=== PATIENT | male | born 1980 | race Caucasian/White ===

== ENCOUNTER 2022-07-09 13:05 | Inpatient (IN) ==
[2022-07-09] MEDS ORDERED: MULTI-VITAMIN INFUSION 10 ML, THIAMINE HCL 100 MG, FOLIC ACID 1 MG in SODIUM CHLORIDE 0... IV ONE (13:31)
[2022-07-09] MEDS ORDERED: chlordiazePOXIDE HCl 25 MG CAP PO ONE (13:31)
[2022-07-09] MEDS ORDERED: PROMETHAZINE 12.5 MG/50.5 ML BAG IV STA (13:31)
[2022-07-09] MEDS ORDERED: SODIUM CHLORIDE 0.9% 1000ML 500 ML IV ONE (13:31)
--- NOTE | 2022-07-09 13:45 | Emergency Department Note ---
Impression & Plan Alcohol withdrawal, Benzodiazepine withdrawal, Hypertension, Tachycardia, Tremor, Diffuse abdominal pain ED Provider Note NAME: HOA WOMACK AGE: 41 SEX: M : 1980 ARRIVES VIA: Walk-In INFORMANT: [Patient][nursing] ED PROVIDER(S): [Duane Chauhan MD] CHIEF COMPLAINT: Detox HISTORY OF PRESENT ILLNESS: The patient is a 41-year-old male who states that he has been at [facility] rehab for around 5 days. The patient is there for alcohol and benzodiazepine withdrawal. The patient states that he had been taking a lot of benzodiazepine before he was admitted to [facility] but now is not using any. Yesterday, he began to shake and feel agitated, he began having muscle cramps and body aches. He began hallucinating. He cannot stop shivering. He has had some sweats. The patient was also complaining of some moderate diffuse abdominal pain. He has a history of ileus. In addition, the patient states that his TB test returned positive. The patient denies fever, no diarrhea. He thinks most of his symptoms today are from benzodiazepine withdrawal, he is asking for help. PMHx/PSHx: See Below SOCIAL HISTORY: See Below. PHYSICAL EXAM: GENERAL: Patient is in moderate distress, shivering. HEENT: No acute trauma, normocephalic atraumatic, mucous membranes moist, no nasal congestion. NECK: No stridor, no adenopathy, no meningismus, trachea is midline. LUNGS: Clear to auscultation bilaterally, no wheeze, no rhonchi, breath sounds equal. HEART: Tachycardic, regular rhythm, no murmurs. ABDOMEN: Soft, nontender, bowel sounds positive, no peritonitis. No abdominal distention. EXTREMITIES: No cyanosis or edema, full range of motion of all the joints without pain or difficulty, no signs for acute trauma. NEUROLOGIC: Oriented x 3, no acute motor or sensory deficits, no focal weakness. Constant shaking of all extremities noted. SKIN: No rash, no jaundice, no diaphoresis. Psychiatric: Cooperative, voluntary, admits to withdrawal symptoms. DIFFERENTIAL DIAGNOSIS: Alcohol and/or benzodiazepine withdrawal, dehydration, electrolyte imbalance, infection, ileus, bowel obstruction, TB, UTI, viral illness, among others. EMERGENCY DEPARTMENT COURSE/PROCEDURES: Prior/Outside records reviewed: None ECG: Indication was tachycardia. The ECG shows a sinus tachycardia with a rate of 101. There is baseline artifact seen. No obvious ST elevation, no PVCs. The QTc is 433. There is some very subtle poor R wave progression. Continuous Cardiac Monitoring: An order was placed for continuous cardiac monitoring. The monitor shows a rate of 108 with sinus tachycardia. Critical Care Note: I have personally spent 46 minutes of critical care time in the direct management of this patient. This includes bedside care, interpretation of diagnostic studies, and testing, discussion with consultants, patient, and family members, and other required patient management activities. This 46 minutes is in excess of all separately billable procedures. MEDICAL DECISION MAKING: There is no leukocytosis or concerning anemia. There is a normal platelet count. No renal failure or significant electrolyte abnormality. No concerning liver enzyme elevation. No evidence for pancreatitis. The patient appears to be in euthyroid state. ECG showed a sinus tachycardia with artifact, no obvious ST elevation. Cardiac enzyme testing x1 was not consistent with acute cardiac injury. Urinalysis did not show infection. COVID, influenza and RSV test were negative. Chest x-ray did not show pneumonia or CHF, no findings of TB. Abdominal and pelvis CT did not show bowel obstruction or ileus. No acute surgical process by CT imaging. On exam, the patient was hypertensive, tachycardic and shivering. He appeared to be suffering from withdrawal. The patient was aggressively managed. He was given IV saline, 500 cc. He was ordered for a liter of IV saline with multivitamins, thiamine and folate. He received 10 mg of IV Valium and then 2 mg of IV Ativan as needed for anxiety and withdrawal. He was given 25 mg of oral Librium. He received 12.5 mg of IV Phenergan. He received IV Tylenol for complaints of a headache. The patient's blood pressure, heart rate and shaking are all markedly improved since treatment here in the ED. He seems to be doing much better. The patient is in need of a hospital stay. He is in no condition to be discharged back to [facility] rehab. He will require detox here in the hospital. I spoke with the patient and case management, the on-call hospitalist was consulted. DISPOSITION: Patient presentation warrants hospital admission. Past Med/Surg History Medical History Alcohol abuse Benzodiazepine abuse PPD positive Social History Feels Safe at Home: Yes Allergies Allergies Allergy/AdvReac Type Severity Reaction Status Date / Time Penicillins Allergy Unknown Unknown Verified 07/09/22 16:42 Home Meds Home Medications Medication Instructions Recorded Confirmed Naloxone Nasal [place] 4mg 1 spray NA DIRECTED PRN Odor 07/09/22 07/09/22 Zinc Oxide/ Dimethicone 1 applic topical DIRECTED PRN 07/09/22 07/09/22 Hemorrhoids acetaminophen 325 mg capsule 650 mg PO QID PRN Pain 07/09/22 07/09/22 (Tylenol) buspirone 10 mg tablet 10 mg PO TID 07/09/22 07/09/22 cholecalciferol (vitamin D3) 125 125 mcg PO DAILY 07/09/22 07/09/22 mcg (5,000 unit) tablet (Vitamin D3) clonidine HCl 0.1 mg tablet 0.1 mg PO TID PRN .LOS 07/09/22 07/09/22 ANXIETY/RESTLESSNESS cyanocobalamin (vitamin B-12) 1,000 mcg PO DAILY 07/09/22 07/09/22 1,000 mcg tablet (Vitamin B-12) diazepam 5 mg tablet (Valium) 2.5 mg PO .[id number] 07/09/22 07/09/22 diazepam 5 mg tablet (Valium) 2.5 mg PO .[id number] 07/09/22 07/09/22 diazepam 5 mg tablet (Valium) 5 mg PO .[id number] 07/09/22 07/09/22 diazepam 5 mg tablet (Valium) 5 mg PO DIRECTED PRN .SEE 07/09/22 07/09/22 INSTRUCTIONS diphenhydramine HCl 25 mg capsule 25 - 50 mg PO Q6 PRN .. 07/09/22 07/09/22 (Benadryl) famotidine 20 mg tablet 20 mg PO HS 07/09/22 07/09/22 folic acid 1 mg tablet 1 mg PO DAILY 07/09/22 07/09/22 gabapentin 300 mg capsule 300 mg PO TID 07/09/22 07/09/22 garlic 1,000 mg capsule 1,000 mg PO DAILY 07/09/22 07/09/22 hydroxyzine pamoate 50 mg capsule 50 mg PO TID PRN .los 07/09/22 07/09/22 (Vistaril) ibuprofen 600 mg tablet 600 mg PO QID PRN Pain 07/09/22 07/09/22 lisinopril 10 mg tablet 10 mg PO DAILY 07/09/22 07/09/22 loperamide 2 mg capsule 4 mg PO BID PRN Diarrhea 07/09/22 07/09/22 loratadine 10 mg tablet (Claritin) 10 mg PO DAILY PRN ALLERGIES 07/09/22 07/09/22 melatonin 5 mg tablet 5 - 10 mg PO HS PRN Sleep 07/09/22 07/09/22 multivitamin 1 tab PO DAILY 07/09/22 07/09/22 niacin 500 mg tablet,extended 500 mg PO QAM 07/09/22 07/09/22 release omega-3 fatty acids 1,000 mg 1,000 mg PO DAILY 07/09/22 07/09/22 capsule omeprazole 40 mg capsule,delayed 40 mg PO DAILY 07/09/22 07/09/22 release paroxetine HCl 40 mg tablet (Paxil) 40 mg PO DAILY 07/09/22 07/09/22 saw palmetto 450 mg capsule 450 mg PO HS 07/09/22 07/09/22 thiamine HCl (vitamin B1) 100 mg 100 mg PO DAILY 07/09/22 07/09/22 tablet trazodone 50 mg tablet 75 mg PO HS 07/09/22 07/09/22 umeclidinium 62.5 mcg-vilanterol 1 inh inhalation DAILY 07/09/22 07/09/22 25 mcg/actuation powdr for inhalation (Anoro Ellipta) Results & Data (ED) Vital Signs Vital Signs - 24 hr 07/09/22 13:11 07/09/22 14:05 07/09/22 14:56 Temperature 36.4 C L Temperature Source Temporal Artery Scan Pulse Rate 125 H 114 H Pulse Rate [Apical] 129 H Pulse Rate from SpO2 Sensor 96 H Pulse Rhythm [Apical] Regular Respiratory Rate 24 19 26 H Blood Pressure 172/127 H Blood Pressure [Left Arm] 148/49 H Blood Pressure Mean 142 Blood Pressure Mean [Left Arm] 82 Blood Pressure Position Sitting Pulse Oximetry 95 97 93 Oxygen Delivery Method Room Air Room Air Sepsis Recent Fever Within 48 Hours No Sepsis New/Unexplained Change in Mental Status No Sepsis Action Taken by Nursing No Action Required 07/09/22 15:16 07/09/22 15:30 07/09/22 15:30 Temperature Temperature Source Pulse Rate 212 H 111 H Pulse Rate [Apical] Pulse Rate from SpO2 Sensor 224 H Pulse Rhythm [Apical] Respiratory Rate 23 21 Blood Pressure 170/116 H Blood Pressure [Left Arm] Blood Pressure Mean 134 Blood Pressure Mean [Left Arm] Blood Pressure Position Pulse Oximetry 96 Oxygen Delivery Method Sepsis Recent Fever Within 48 Hours Sepsis New/Unexplained Change in Mental Status Sepsis Action Taken by Nursing 07/09/22 15:47 07/09/22 15:47 07/09/22 16:00 Temperature Temperature Source Pulse Rate 104 H Pulse Rate [Apical] Pulse Rate from SpO2 Sensor 75 Pulse Rhythm [Apical] Respiratory Rate 30 H Blood Pressure 119/90 150/112 H Blood Pressure [Left Arm] Blood Pressure Mean 99 124 Blood Pressure Mean [Left Arm] Blood Pressure Position Pulse Oximetry 100 Oxygen Delivery Method Sepsis Recent Fever Within 48 Hours Sepsis New/Unexplained Change in Mental Status Sepsis Action Taken by Nursing 07/09/22 16:00 07/09/22 16:16 07/09/22 16:16 Temperature Temperature Source Pulse Rate 70 78 Pulse Rate [Apical] Pulse Rate from SpO2 Sensor 72 78 Pulse Rhythm [Apical] Respiratory Rate 20 15 Blood Pressure Blood Pressure [Left Arm] Blood Pressure Mean 85 Blood Pressure Mean [Left Arm] Blood Pressure Position Pulse Oximetry 96 98 Oxygen Delivery Method Sepsis Recent Fever Within 48 Hours Sepsis New/Unexplained Change in Mental Status Sepsis Action Taken by Nursing 07/09/22 16:30 07/09/22 16:30 Temperature Temperature Source Pulse Rate 78 Pulse Rate [Apical] Pulse Rate from SpO2 Sensor 75 Pulse Rhythm [Apical] Respiratory Rate 16 Blood Pressure 142/104 H Blood Pressure [Left Arm] Blood Pressure Mean 116 Blood Pressure Mean [Left Arm] Blood Pressure Position Pulse Oximetry 99 Oxygen Delivery Method Sepsis Recent Fever Within 48 Hours Sepsis New/Unexplained Change in Mental Status Sepsis Action Taken by Shelter Medications Current Medication List: was personally reviewed by me Laboratory Data Attestation: I reviewed the patient's lab results. 07/09/22 14:00 07/09/22 14:00 Lab Results 07/09/22 07/09/22 07/09/22 Range/Units 14:00 14:00 14:00 WBC 6.84 (4.8-10.8) K/ul RBC 4.79 (4.63-6.08) M/uL Hgb 15.3 (14.0-18.0) g/dl Hct 45.1 (40.1-51.0) % MCV 94.2 (80.0-100.0) fL MCH 31.9 (25.0-34.0) pg MCHC 33.9 (32.0-36.0) g/dL RDW Std Deviation 46.9 H (36.4-46.3) fL RDW Coeff of Cammie 13.6 (11.5-14.5) % Plt Count 267 (130-400) K/uL MPV 9.3 L (9.4-12.4) fL Immature Gran % (Auto) 0.4 % Neut % (Auto) 73.0 % Lymph % (Auto) 15.2 % [place] % (Auto) 10.2 % Eos % (Auto) 0.6 % Baso % (Auto) 0.6 % Neut # (Auto) 4.99 (1.4-6.5) K/uL Lymph # (Auto) 1.04 L (1.2-3.4) K/uL [place] # (Auto) 0.70 (0.24-0.82) K/uL Eos # (Auto) 0.04 (0-0.50) K/uL Baso # (Auto) 0.04 (0-0.2) K/uL Immature Gran # (Auto) 0.03 H (0.00-0.02) K/uL Sodium 138 (136-145) mmol/L Potassium 4.0 (3.5-5.1) mmol/L Chloride 103 (98-107) mmol/L Carbon Dioxide 26 (21-32) mmol/L Anion Gap 9 (3-11) BUN 11 (6-23) mg/dl Creatinine 1.04 (0.6-1.4) mg/dl Est Cr Clr Drug Dosing 115.6 ml/min Est GFR ( Amer) 102.9 ml/min Est GFR (Non-Af Amer) 88.8 ml/min BUN/Creatinine Ratio 10.6 (10-20) Glucose 91 (70-99(Fasting)) mg/dl Calcium 10.1 (8.5-10.1) mg/dl Magnesium 2.1 (1.7-2.4) mg/dl Total Bilirubin 0.5 (0.2-1.0) mg/dl AST 43 H (13-39) U/L ALT 34 (7-52) U/L Alkaline Phosphatase 79 (34-104) U/L Troponin I High Sens 3.2 (0-20) pg/ml Total Protein 8.0 (6.0-8.3) gm/dl Albumin 4.6 (3.4-5.0) gm/dl Globulin 3.4 (2.5-4.0) gm/dl Albumin/Globulin Ratio 1.4 (0.9-2) Lipase 35 (11-82) U/L TSH 0.725 (0.300-4.500) uIu/ml Administered Medications Lorazepam (Lorazepam 2 Mg/1 Ml Vial) 1 mg IV UD PRN; Protocol PRN Reason: EtOH Withdrawal AWSS Score 6,7 Stop: 08/08/22 16:30 Last Admin: 07/09/22 18:08 Dose: 1 mg Documented By: RUFUS Discontinued Medications Chlordiazepoxide HCl (Chlordiazepoxide Hcl 25 Mg Cap) 25 mg PO NOW ONE Stop: 07/09/22 13:32 Last Admin: 07/09/22 13:51 Dose: 25 mg Documented By: TRUNG Diazepam (Diazepam 5 Mg/Ml Inj 10ml Vial) 10 mg IV NOW STA Stop: 07/09/22 13:41 Last Admin: 07/09/22 13:51 Dose: 10 mg Documented By: TRUNG Gabapentin (Gabapentin 600 Mg Tab) 1,200 mg PO NOW STA Stop: 07/09/22 16:37 Last Admin: 07/09/22 17:12 Dose: 1,200 mg Documented By: RUFUS Sodium Chloride (Nss 1000ml) 500 mls @ 999 mls/hr IV .Q31M ONE Stop: 07/09/22 14:01 Last Infusion: 07/09/22 14:37 Dose: 0 mls/hr Documented By: Admin: 07/09/22 13:57 Dose: 999 mls/hr Documented By: TRUNG Multivitamins 10 ml/ Thiamine HCl 100 mg/ Folic Acid 1 mg/Sodium Chloride 1,011.2 mls @ 1,011.2 mls/hr IV .Q1H ONE Stop: 07/09/22 14:30 Last Admin: 07/09/22 14:30 Dose: 1,011.2 mls/hr Documented By: BORIS Promethazine HCl (Phenergan) 12.5 mg in 50.5 mls @ 202 mls/hr IV NOW STA Stop: 07/09/22 13:45 Last Infusion: 07/09/22 14:36 Dose: 0 mls/hr Documented By: Admin: 07/09/22 13:50 Dose: 202 mls/hr Documented By: TRUNG Acetaminophen (Ofirmev) 1,000 mg in 100 mls @ 400 mls/hr IV NOW STA Stop: 07/09/22 16:28 Last Admin: 07/09/22 16:33 Dose: 400 mls/hr Documented By: RUFUS Ioversol (Optiray 350 100ml) 85 ml IV ONCE ONE Stop: 07/09/22 15:07 Last Admin: 07/09/22 15:12 Dose: 85 ml Documented By: MALENA Lorazepam (Lorazepam 2 Mg/1 Ml Vial) 2 mg IV NOW STA Stop: 07/09/22 15:00 Last Admin: 07/09/22 15:25 Dose: 2 mg Documented By: BORIS Imaging Data Radiologist's Impression: Abdomen/Pelvis CT 07/09/22 13:31 CT abd pelvis IV con only CLINICAL HISTORY: pain, poss obstruction TECHNIQUE: Helical axial images of the abdomen and pelvis were obtained and displayed. Automated dose lowering techniques and/or adjustment according to patient size were utilized for this exam. This exam was performed with intravenous contrast. CT DOSE: 1463.66 mGy.cm COMPARISON: None available at the time of this dictation. FINDINGS: Lower chest: Bibasilar atelectasis versus scarring is seen. Liver: Unremarkable. No focal lesions are seen. Gallbladder and biliary tree: No calcified gallstones. Normal caliber wall. No intra- or extrahepatic biliary ductal dilation. Pancreas: Unremarkable, no focal lesions. Spleen: Unremarkable. Adrenals: Unremarkable. Kidneys and ureters: Unremarkable. Bladder: Unremarkable. Reproductive organs: Unremarkable. Bowel: Unremarkable appearance of the bowel. The appendix is normal. Lymph nodes Retroperitoneal: Unremarkable. Pelvic: Unremarkable. Mesenteric: Unremarkable. Peritoneum: Normal. Vessels: Unremarkable. Abdominal wall: Unremarkable. Bones: Unremarkable. IMPRESSION: No evidence of bowel obstruction or other acute abnormality. ACT 112: Negative or not required by law. Electronically signed by: Don Wade M.D. 07/09/2022 3:29 PM Chest X-Ray 07/09/22 13:31 XR chest 1V portable CLINICAL HISTORY: pos tb test TECHNIQUE: Single frontal radiograph of the chest was obtained. Comparison: None available at the time of this dictation. FINDINGS: No lines and tubes are seen. The cardiomediastinal silhouette is normal. The lungs are clear. Incidental note is made of an azygos fissure. No evidence of pleural effusion or pneumothorax. IMPRESSION: No acute abnormality and in particular no evidence of tuberculosis. ACT 112: Negative or not required by law. Electronically signed by: Don Wade M.D. 07/09/2022 2:28 PM Discharge Plan Visit Data Chief Complaint: Detox Request Stated Complaint: DETOX REQUEST ED Provider: Duane Chauhan Discharge Problem: Alcohol withdrawal, Benzodiazepine withdrawal, Hypertension, Tachycardia, Tremor, Diffuse abdominal pain Patient Disposition: Admitted As Inpatient Condition: Fair Discharge Instructions Interventions: ED Discharge Assessment Last Done: 07/09/22 18:09
[2022-07-09 14:25] LABS: Basophils # (auto) 0.04 K/uL (0-0.2); Basophils % (auto) 0.6 %; Eosinophils # (auto) 0.04 K/uL (0-0.50); Eosinophils % (auto) 0.6 %; Hematocrit (blood only) 45.1 % (40.1-51.0); Hemoglobin 15.3 g/dl (14.0-18.0); Immature Granulocytes # (auto) 0.03 K/uL (0.00-0.02); Immature Granulocytes % (auto) 0.4 %; Lymphocytes # (auto) 1.04 K/uL (1.2-3.4); Lymphocytes % (auto) 15.2 %; Mean Corpuscular Hemoglobin 31.9 pg (25.0-34.0); Mean Corpuscular Hgb Conc 33.9 g/dL (32.0-36.0); Mean Corpuscular Volume 94.2 fL (80.0-100.0); Mean Platelet Volume 9.3 fL (9.4-12.4); Monocytes % (auto) 10.2 %; Neutrophils # (auto) 4.99 K/uL (1.4-6.5); Platelet Count 267 K/uL (130-400); RDW Coefficient of Variation 13.6 % (11.5-14.5); RDW Standard Deviation 46.9 fL (36.4-46.3); Red Blood Count 4.79 M/uL (4.63-6.08); White Blood Count 6.84 K/ul (4.8-10.8)
--- NOTE | 2022-07-09 14:29 | XRay Report ---
XR chest 1V portable CLINICAL HISTORY: pos tb test TECHNIQUE: Single frontal radiograph of the chest was obtained. Comparison: None available at the time of this dictation. FINDINGS: No lines and tubes are seen. The cardiomediastinal silhouette is normal. The lungs are clear. Inciden anjel note is made of an azygos fissure. No evidence of pleural effusion or pneumothorax. IMPRESSION: No acute abnormality and in particular no evidence of tuberculosis. ACT 112: Negative or not required by law. Electronically signed by: Don Wade M.D. 07/09/2022 2:28 PM
--- NOTE | 2022-07-09 14:39 | Electrocardiogram Report ---
Test Reason : Blood Pressure : / mmHG Vent. Rate : 101 BPM Atrial Rate : 101 BPM P-R Int : 150 ms QRS Dur : 078 ms QT Int : 334 ms P-R-T Axes : 039 -03 022 degrees QTc Int : 433 ms Poor data quality, interpretation may be adversely affected Sinus tachycardia Poor R wave progression, consider anterior MD vs. lead placement vs. LVH Abnormal ECG No previous ECGs available Confirmed by Villa Albert ([id number]) on 07/09/2022 2:39:20 PM Referred By: Confirmed By:Villa Albert
[2022-07-09 14:53] LABS: Troponin I High Sensitivity 3.2 pg/ml (0-20)
[2022-07-09 14:55] LABS: Albumin Globulin Ratio 1.4 (0.9-2); Albumin Level 4.6 gm/dl (3.4-5.0); BUN Creatinine Ratio 10.6 (10-20); Bilirubin,Total 0.5 mg/dl (0.2-1.0); Calcium 10.1 mg/dl (8.5-10.1); Creatinine Clr Calc Pharmacy 115.6 ml/min; Est GFR (African American) 102.9 ml/min; Est GFR (Non-African American) 88.8 ml/min; Globulin 3.4 gm/dl (2.5-4.0); Magnesium 2.1 mg/dl (1.7-2.4)
[2022-07-09] MEDS ORDERED: LORazepam 2 MG/1 ML VIAL IV STA ×4 (14:59→22:52)
[2022-07-09 15:06] LABS: Influenza A virus by PCR Negative (Neg); Influenza B virus by PCR Negative (Neg); RSV by PCR Negative (Neg); SARS CoV2 RNA(COVID-19) Ceph NEGATIVE (Negative)
[2022-07-09] MEDS ORDERED: OPTIRAY 350 100ml IV ONE (15:06)
[2022-07-09] MEDS ORDERED: LORazepam 2 MG/1 ML VIAL IV PRN ×3 (15:10→16:31)
--- NOTE | 2022-07-09 15:30 | CT Scan Report ---
CT abd pelvis IV con only CLINICAL HISTORY: pain, poss obstruction TECHNIQUE: Helical axial images of the abdomen and pelvis were obtained and displayed. Automated dose lowering techniques and/or adjustment according to patient size were utilized for this exam. This e xam was performed with intravenous contrast. CT DOSE: 1463.66 mGy.cm COMPARISON: None available at the time of this dictation. FINDINGS: Lower chest: Bibasilar atelectasis versus scarring is seen. Liver: Unremarkable. No focal lesions are seen. Gallbladder and biliary tree: No calcified gallstones. Normal caliber wall. No intra- or extrahepatic biliary ductal dilation. Pancreas: Unremarkable, no focal lesions. Spleen: Unremarkable. Adrenals: Unremarkable. Kidneys and ureters: Unremarkable. Bladder: Unremarkable. Reproductive organs: Unremarkable. Bowel: Unremarkable appearance of the bowel. The appendix is normal. Lymph nodes Retroperitoneal: Unremarkable. Pelvic: Unremarkable. Mesenteric: Unremarkable. Peritoneum: Normal. Vessels: Unremarkable. Abdominal wall: Unremarkable. Bones: Unremarkable. IMPRESSION: No evidence of bowel obstruction or other acute abnormality. ACT 112: Negative or not required by law. Electronically signed by: Don Wade M.D. 07/09/2022 3:29 PM
[2022-07-09] MEDS ORDERED: ACETAMINOPHEN 1,000 MG/100 ML VIAL IV STA (16:14)
[2022-07-09] MEDS ORDERED: GABAPENTIN 1200MG ALCOHOL WITHDRAWAL LOAD PO STA (16:31)
[2022-07-09] MEDS ORDERED: Ativan IV Alcohol Withdrawal--Active Protocol IV PRN (16:31)
[2022-07-09] MEDS ORDERED: GABAPENTIN 600 MG TAB PO STA (16:36)
--- NOTE | 2022-07-09 16:37 | History & Physical Report ---
Date of Service July 09, 2022 Assessment & Plan (1) Alcohol withdrawal: Plan: Patient going through alcohol withdrawal. 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 (2) Benzodiazepine withdrawal with perceptual disturbance: Plan: as above. (3) PPD positive: Plan: questionable PPD positive, this was completed on Friday, over 72 hours, however, no induration noted, only eyrthema at this time (4) Scrotal pain: Plan: consult urology. History of Present Illness Chief Complaint: alcohol withdrawal Primary Care Provider: NO PCP This is a pleasant 41 yo malewho was at [facility] for about 5 days. He was being treated for alcohol and benzo withdrawal. The patient reports he normally takes about 6 mg of ativan daily. He was being treated with valium but yesterday was having hallucinations, shakes and being agitated. He has sweats. The patient also reports having a positive PPD which was done on Friday. He also reports having a history of an ileus. Is complaining of right wrist pain. The patient denies fever, and no diarrhea. He thinks most of his symptoms today are from benzodiazepine withdrawal, he is asking for help. Allergies Allergy/AdvReac Type Severity Reaction Status Date / Time Penicillins Allergy Unknown Unknown Verified 07/09/22 16:42 Home Medications Medication Instructions Recorded Confirmed Type Naloxone Nasal [place] 4mg 1 spray NA DIRECTED PRN Odor 07/09/22 07/09/22 History Zinc Oxide/ Dimethicone 1 applic topical DIRECTED PRN 07/09/22 07/09/22 History Hemorrhoids acetaminophen 325 mg capsule 650 mg PO QID PRN Pain 07/09/22 07/09/22 History (Tylenol) buspirone 10 mg tablet 10 mg PO TID 07/09/22 07/09/22 History cholecalciferol (vitamin D3) 125 125 mcg PO DAILY 07/09/22 07/09/22 History mcg (5,000 unit) tablet (Vitamin D3) clonidine HCl 0.1 mg tablet 0.1 mg PO TID PRN .LOS 07/09/22 07/09/22 History ANXIETY/RESTLESSNESS cyanocobalamin (vitamin B-12) 1,000 mcg PO DAILY 07/09/22 07/09/22 History 1,000 mcg tablet (Vitamin B-12) diazepam 5 mg tablet (Valium) 2.5 mg PO .[id number] 07/09/22 07/09/22 History diazepam 5 mg tablet (Valium) 2.5 mg PO .[id number] 07/09/22 07/09/22 History diazepam 5 mg tablet (Valium) 5 mg PO .[id number] 07/09/22 07/09/22 History diazepam 5 mg tablet (Valium) 5 mg PO DIRECTED PRN .SEE 07/09/22 07/09/22 History INSTRUCTIONS diphenhydramine HCl 25 mg capsule 25 - 50 mg PO Q6 PRN .. 07/09/22 07/09/22 History (Benadryl) famotidine 20 mg tablet 20 mg PO HS 07/09/22 07/09/22 History folic acid 1 mg tablet 1 mg PO DAILY 07/09/22 07/09/22 History gabapentin 300 mg capsule 300 mg PO TID 07/09/22 07/09/22 History garlic 1,000 mg capsule 1,000 mg PO DAILY 07/09/22 07/09/22 History hydroxyzine pamoate 50 mg capsule 50 mg PO TID PRN .los 07/09/22 07/09/22 History (Vistaril) ibuprofen 600 mg tablet 600 mg PO QID PRN Pain 07/09/22 07/09/22 History lisinopril 10 mg tablet 10 mg PO DAILY 07/09/22 07/09/22 History loperamide 2 mg capsule 4 mg PO BID PRN Diarrhea 07/09/22 07/09/22 History loratadine 10 mg tablet (Claritin) 10 mg PO DAILY PRN ALLERGIES 07/09/22 07/09/22 History melatonin 5 mg tablet 5 - 10 mg PO HS PRN Sleep 07/09/22 07/09/22 History multivitamin 1 tab PO DAILY 07/09/22 07/09/22 History niacin 500 mg tablet,extended 500 mg PO QAM 07/09/22 07/09/22 History release omega-3 fatty acids 1,000 mg 1,000 mg PO DAILY 07/09/22 07/09/22 History capsule omeprazole 40 mg capsule,delayed 40 mg PO DAILY 07/09/22 07/09/22 History release paroxetine HCl 40 mg tablet (Paxil) 40 mg PO DAILY 07/09/22 07/09/22 History saw palmetto 450 mg capsule 450 mg PO HS 07/09/22 07/09/22 History thiamine HCl (vitamin B1) 100 mg 100 mg PO DAILY 07/09/22 07/09/22 History tablet trazodone 50 mg tablet 75 mg PO HS 07/09/22 07/09/22 History umeclidinium 62.5 mcg-vilanterol 1 inh inhalation DAILY 07/09/22 07/09/22 History 25 mcg/actuation powdr for inhalation (Anoro Ellipta) Past Med/Surg History Medical History Alcohol abuse Benzodiazepine abuse PPD positive Social History Smoking Status: Never smoker Do You Dip or Chew Tobacco: No; Hx Alcohol Use: Yes Alcohol type: hard liquor Hx Substance Use: Yes Last Used Substance: Days (ago) Preferred Language: Swazi Communication Ability: Unable Rn Oncology Research Required: No Beliefs That Will Affect Care: None Current Living Situation: Alone Other Information That Helps Us Care for You: No Feels Safe at Home: Yes Safety Concerns: Feels Safe At This Time Assistive Devices: None Review of Systems Constitutional: + chills and + body aches; no fever Eyes: no blind spots Ear, Nose, Mouth, Throat: no ear pain and no tinnitus Respiratory: no cough Cardiovascular: no chest pain Gastrointestinal: + abdominal pain Genitourinary: no dysuria Musculoskeletal: no back pain Integumentary: no rash Neurologic: no gait abnormality Psychiatric: + irritability Endocrine: + fatigue Hematologic / Lymphatic: no easy bleeding Allergy / Immunological: no GI upset with certain foods Physical Exam Constitutional: WD/WN, vitals as above Eyes: PERRL, conjunctivae normal, anicteric sclerae ENMT: external ear and nose normal, oropharynx normal Neck: trachea midline, no thyromegaly Respiratory: normal respiratory effort, lungs clear to auscultation Cardiovascular: RRR, no murmur, no edema Gastrointestinal (Abdomen): normal bowel sounds, soft, nontender, no hepatosplenomegaly Musculoskeletal: no cyanosis or clubbing, extremities motor strength 5/5 Skin: no rashes, warm and dry (erythema on right wrist from PPD, no induration however, past 72h) Neurologic: PERRL, EOMI, accommodation nl, no face palsy, no dysarthria Psychiatric: A+Ox3, euthymic affect Lymphatic: no cervical or axillary lymphadenopathy Results & Data Results & Data ([facility]) Vital Signs (Past 12 Hours) Vital Signs Temp Pulse Pulse Resp BP BP Pulse Ox 07/09/22 14:05 129 H 19 148/49 H 97 07/09/22 13:11 36.4 C L 125 H 24 172/127 H 95 O2 Del Method 07/09/22 14:05 Room Air 07/09/22 13:11 Room Air PG Care Time/CCT Total # of Minutes Spent Total Time Spent with Patient: Total time spent is greater than 50% in coordination of care (as documented) at patient's floor/unit and/or counseling patient: Coding Level of Care Code 74912 INT INP/OBS CARE 3/75MIN Diagnoses Alcohol withdrawal F10.939 Benzodiazepine withdrawal with perceptual disturbance F13.932 PPD positive R76.11 Scrotal pain N50.82
[2022-07-09 17:06] LABS: Appearance Urine Clear (Clear); Bilirubin Urine Negative (Negative); Blood Urine Negative (Negative); Color Urine Yellow; Glucose Urine UA Negative (Negative); Ketones Urine Negative (Negative); Leukocyte Esterase Urine Negative (Negative); Nitrite Urine Negative (Negative); Protein Urine Negative (Negative); Specific Gravity Urine 1.015 (1.000-1.030); Urobilinogen Urine Negative (Negative); pH Urine 7.5 (4.5-7.5)
[2022-07-09] MEDS ORDERED: BUTT PASTE (ZINC OXIDE 16%) 171 APPLN/57 GM JAR TOP PRN (18:43)
--- NOTE | 2022-07-09 19:28 | XRay Report ---
XR wrist RT min 3V routine CLINICAL HISTORY: Right wrist pain. COMPARISON: None FINDINGS: Alignment of the right wrist is anatomic. No fracture is present. There are no osseous les ions. Joint spaces are preserved. There may be wrist and distal forearm soft tissue swelling. Deformi ty of the distal shaft of the right fifth metacarpal with relation is noted. IMPRESSION: 1. No osseous abnormality of the right wrist. 2. Right fifth metacarpal fracture. This is likely old. ACT 112: Negative or not required by law. Electronically signed by: Walt Gonsalves M.D. 07/09/2022 7:26 PM
--- NOTE | 2022-07-09 20:02 | Urology Consultation ---
Date of Consultation July 09, 2022 Assessment & Plan (1) Scrotal pain: The patient is being admitted to the hospital service for alcohol/benzo diazepam withdrawal. Management of this issue will be directed by the hospitalist. Concerning the patient's scrotal pain we recommend proceeding as follows: Is unclear if the primary symptomatology is perineal pain or scrotal pain As the patient has reported a previous scrotal mass we will check a testicular ultrasound As the patient does report a history of BPH we will check a PSA I would recommend checking postvoid residuals and if patient is having high postvoid residuals consideration can be given to adding Flomax to his medication regimen Further recommendations will based on pending PSA results as well as the patient's testicular ultrasound that is also pending History of Present Illness Reason for Consultation: Scrotal pain Attending Physician: Sunil Lynn History of Present Illness This is a 41-year-old male who has been at [facility] for approximately 5 days. Patient was noted to be there for alcohol and benzodiazepine withdrawal. Since yesterday the patient began to have severe shakes as long with feelings of agitation and muscle cramps and body aches. He was also reported to have hallucinations along with shakes and shivering. He was also reporting some diffuse abdominal pain as well as testicular pain and he was therefore referred to the emergency department for further evaluation. When asked to describe the patient's testicular pain he notes that he has been having this pain for approximately 3 weeks. He describes the pain as a dull ache. He further adds that he also has some pain in his perineal area. Further symptoms he exhibits are dysuria. He denies any hematuria. He denies any penile discharge. He notes that he has not been sexually active in "a long time". He denies any back or flank pain. He does note that his urinary stream does not appear to be as strong as what it once was. He is unsure if he can completely empty his bladder. He does not report any nausea or vomiting with his testicular pain. He does report that he was told that he had an enlarged prostate and was told that he should consider taking Flomax. He denies any fevers. He does report that prior to entering rehab he was having scrotal pain and he was told that he had a scrotal mass and it was recommended that patient have an ultrasound, however the facility he was at he left AGAINST MEDICAL ADVICE. Since arrival to the emergency department the patient has had labs and imaging which I independently reviewed. He did have a CT scan of the abdomen and pelvis. This showed that there is no evidence of bowel obstruction or acute abnormalities within the abdomen or pelvis. Specifically the kidneys and ureters were unremarkable along with the bladder and adrenal glands which were also unremarkable. There were no acute findings noted in the pelvic portion of this exam. Chest x-ray showed no acute abnormalities. Patient also had a right wrist x-ray that showed a right fifth metacarpal fracture which was felt to be old but no other osseous abnormalities in the right wrist. Labs including CBC were white blood cell count, hemoglobin, hematocrit, and platelet count were all normal. Chemistry profile showed sodium, potassium, BUN, creatinine were normal. He did have some inflation of his AST at 43 but his bilirubin, ALT, and alkaline phosphatase were all normal. There is no elevation of lipase or TSH. Urinalysis was not taken of infection. Patient was checked for COVID, influenza a and B, and RSV all of which were negative. At the time of my interview the patient was in no distress. Allergies Allergy/AdvReac Type Severity Reaction Status Date / Time Penicillins Allergy Unknown Unknown Verified 07/09/22 16:42 Home Medications Medication Instructions Recorded Confirmed Type Naloxone Nasal [place] 4mg 1 spray NA DIRECTED PRN Odor 07/09/22 07/09/22 History Zinc Oxide/ Dimethicone 1 applic topical DIRECTED PRN 07/09/22 07/09/22 History Hemorrhoids acetaminophen 325 mg capsule 650 mg PO QID PRN Pain 07/09/22 07/09/22 History (Tylenol) buspirone 10 mg tablet 10 mg PO TID 07/09/22 07/09/22 History cholecalciferol (vitamin D3) 125 125 mcg PO DAILY 07/09/22 07/09/22 History mcg (5,000 unit) tablet (Vitamin D3) clonidine HCl 0.1 mg tablet 0.1 mg PO TID PRN .LOS 07/09/22 07/09/22 History ANXIETY/RESTLESSNESS cyanocobalamin (vitamin B-12) 1,000 mcg PO DAILY 07/09/22 07/09/22 History 1,000 mcg tablet (Vitamin B-12) diazepam 5 mg tablet (Valium) 2.5 mg PO .[id number] 07/09/22 07/09/22 History diazepam 5 mg tablet (Valium) 2.5 mg PO .[id number] 07/09/22 07/09/22 History diazepam 5 mg tablet (Valium) 5 mg PO .[id number] 07/09/22 07/09/22 History diazepam 5 mg tablet (Valium) 5 mg PO DIRECTED PRN .SEE 07/09/22 07/09/22 History INSTRUCTIONS diphenhydramine HCl 25 mg capsule 25 - 50 mg PO Q6 PRN .. 07/09/22 07/09/22 History (Benadryl) famotidine 20 mg tablet 20 mg PO HS 07/09/22 07/09/22 History folic acid 1 mg tablet 1 mg PO DAILY 07/09/22 07/09/22 History gabapentin 300 mg capsule 300 mg PO TID 07/09/22 07/09/22 History garlic 1,000 mg capsule 1,000 mg PO DAILY 07/09/22 07/09/22 History hydroxyzine pamoate 50 mg capsule 50 mg PO TID PRN .los 07/09/22 07/09/22 History (Vistaril) ibuprofen 600 mg tablet 600 mg PO QID PRN Pain 07/09/22 07/09/22 History lisinopril 10 mg tablet 10 mg PO DAILY 07/09/22 07/09/22 History loperamide 2 mg capsule 4 mg PO BID PRN Diarrhea 07/09/22 07/09/22 History loratadine 10 mg tablet (Claritin) 10 mg PO DAILY PRN ALLERGIES 07/09/22 07/09/22 History melatonin 5 mg tablet 5 - 10 mg PO HS PRN Sleep 07/09/22 07/09/22 History multivitamin 1 tab PO DAILY 07/09/22 07/09/22 History niacin 500 mg tablet,extended 500 mg PO QAM 07/09/22 07/09/22 History release omega-3 fatty acids 1,000 mg 1,000 mg PO DAILY 07/09/22 07/09/22 History capsule omeprazole 40 mg capsule,delayed 40 mg PO DAILY 07/09/22 07/09/22 History release paroxetine HCl 40 mg tablet (Paxil) 40 mg PO DAILY 07/09/22 07/09/22 History saw palmetto 450 mg capsule 450 mg PO HS 07/09/22 07/09/22 History thiamine HCl (vitamin B1) 100 mg 100 mg PO DAILY 07/09/22 07/09/22 History tablet trazodone 50 mg tablet 75 mg PO HS 07/09/22 07/09/22 History umeclidinium 62.5 mcg-vilanterol 1 inh inhalation DAILY 07/09/22 07/09/22 History 25 mcg/actuation powdr for inhalation (Anoro Ellipta) Patient History Medical History Alcohol abuse Benzodiazepine abuse PPD positive Social History Feels Safe at Home: Yes Review of Systems Constitutional: no fever Eyes: no eye pain Ear, Nose, Mouth, Throat: no ear pain Respiratory: no cough and no dyspnea Cardiovascular: no chest pain Gastrointestinal: + abdominal pain; no nausea and no vomiting Genitourinary: + as per Subjective / HPI Musculoskeletal: no back pain Integumentary: no rash Neurologic: no localized weakness Physical Exam Physical Exam: The patient's genital/perineum were examined. In the perineum the patient did not have any pain with palpation of the anus or area surrounding the anus. There are no open areas or areas of eschar. There is no areas of drainage. The patient's penile shaft was normal without any cuts or excoriations. There is no penile discharge noted. The patient's testicles were examined. I did not appreciate any masses or fluid collections. The patient did report pain with palpation of his left testicle but not the right. There is no erythema or cellulitis of the scrotum. Constitutional: no acute distress Eyes: no conjunctival abnormality ENMT: Ears: no hearing impairment and no external ear abnormality Neck: trachea midline Respiratory: normal respiratory effort; no respiratory distress and no labored breathing Cardiovascular: Rate/Rhythm: regular rate, regular rhythm and + tachycardic Gastrointestinal (Abdomen): Soft, nondistended, and nonrigid. There is no rebound tenderness or guarding or significant pain with palpation Musculoskeletal: No calf tenderness Skin: no rashes Neurologic: moves all extremities Psychiatric: Orientation: alert and oriented x 3 Affect: + anxious affect Results & Data ([facility]) Vital Signs (Past 12 Hours) Vital Signs Temp Pulse Pulse Resp BP BP Pulse Ox 07/09/22 17:15 130/87 07/09/22 17:15 74 18 98 07/09/22 17:00 75 17 98 07/09/22 17:00 123/82 07/09/22 16:45 141/92 H 07/09/22 16:45 72 20 99 07/09/22 16:30 78 16 99 07/09/22 16:30 142/104 H 07/09/22 16:16 78 15 98 07/09/22 16:00 70 20 96 07/09/22 16:00 150/112 H 07/09/22 15:47 119/90 07/09/22 15:47 104 H 30 H 100 07/09/22 15:30 111 H 21 96 07/09/22 15:30 170/116 H 07/09/22 15:16 212 H 23 07/09/22 14:56 114 H 26 H 93 07/09/22 17:19 63 16 98 07/09/22 14:05 129 H 19 148/49 H 97 07/09/22 13:11 36.4 C L 125 H 24 172/127 H 95 O2 Del Method 07/09/22 17:15 07/09/22 17:15 07/09/22 17:00 07/09/22 17:00 07/09/22 16:45 07/09/22 16:45 07/09/22 16:30 07/09/22 16:30 07/09/22 16:16 07/09/22 16:00 07/09/22 16:00 07/09/22 15:47 07/09/22 15:47 07/09/22 15:30 07/09/22 15:30 07/09/22 15:16 07/09/22 14:56 07/09/22 17:19 Room Air 07/09/22 14:05 Room Air 07/09/22 13:11 Room Air PG Care Time/CCT Total # of Minutes Spent Total Time Spent with Patient: Total time spent is greater than 50% in coordination of care (as documented) at patient's floor/unit and/or counseling patient: Coding Level of Care Code INP/OBS CONSULT LVL 5, 80 MIN Diagnoses Scrotal pain N50.82
[2022-07-09] MEDS: lisinopril 10 MG TAB PO SCH (20:21)
[2022-07-09] MEDS: LORazepam 2 MG/1 ML VIAL IV PRN (21:17)
[2022-07-09] MEDS ORDERED: STAT IV Infusion **Titration per Protocol STA (21:17)
[2022-07-09 21:20] LABS: Free PSA % 41.3 %; Prostate SpecificAg Diagnostic 0.436 ng/ml (0-4)
[2022-07-09] MEDS: dexMEDEtomidine 200 MCG/50 ML BAG IV SCH (22:17)
[2022-07-09] MEDS: traZODone HCL 50 MG TAB PO SCH (22:22)
[2022-07-09] MEDS: busPIRone 5 MG TAB PO SCH (22:22)
[2022-07-09] MEDS: FAMOTIDINE 20 MG TAB PO SCH (22:24)
[2022-07-09] MEDS: ACETAMINOPHEN 325 MG TAB PO PRN (22:40)
[2022-07-09] MEDS ORDERED: GABAPENTIN 600 MG TAB PO SCH (22:45)
--- NOTE | 2022-07-09 22:56 | Critical Care Consultation ---
Date of Consultation July 09, 2022 Assessment & Plan (1) Alcohol withdrawal: Impression: 41-year-old male presents to the ICU with refractory DTs from alcohol withdrawal/benzo withdrawal, now requiring Precedex drip and IV Ativan. Neuro - Alcohol withdrawal/benzo withdrawalpatient reports drinking vodka for many years. He also reports prescription for 6 mg of Ativan daily for anxiety, PTSD, and insomnia -Now experiencing refer refractory DTs after [address] [facility]. Persistent withdrawal symptoms despite multiple doses of IV Ativan and now requiring Precedex drip. Titrate as needed -Continue MARSHA S scale with Ativan as to not use Precedex as monotherapy due to risk of seizure -Continue thiamine, folate, multivitamin -Monitor in ICU Anxiety and depression/PTSD/insomniawe will continue home regimen of BuSpar, Paxil, trazodone Cardiac - Tachycardialikely symptomatic due to withdrawal. Monitor on telemetry for now HTNcontinue lisinopril Respiratory - Lungs clear to auscultation. Monitor on pulse ox GI - Abdominal painunsure of etiology, CT abdomen and pelvis negative for acute process, LFTs and lipase within normal limits RENAL/LYTES - Creatinine within normal limits, no electrolyte abnormalities. 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 On airborne precautions while quant from gold pending LINES/IV ACCESS - Peripheral IVs DVT PROPHYLAXIS - SCDs, Lovenox Thank you for allowing us to participate in the care of this patient. Please refer to my attending physician's documentation for any further recommendations. (2) Benzodiazepine withdrawal: (3) Scrotal pain: (4) Hypertension: (5) Tachycardia: History of Present Illness Attending Physician: Sunil Lynn History of Present Illness Patient is a 41-year-old male who [facility] He was undergoing treatment in the emergency department for benzo and alcohol withdrawal. He presented with hallucinations, tremors, agitation, and diaphoresis and received multiple doses of IV push Ativan. ICU consulted as patient is now having refractory DTs and will be admitted to ICU for addition of Precedex drip. On examination the patient has multiple complaints including muscle cramps, body aches, abdominal pain, testicular pain, foot pain. Urology consulted for testicular pain and scrotal ultrasound pending. PSA normal. Patient also reports a previously positive TB test (no active disease on chest x-ray), and is currently on airborne precautions and QuantiFERON gold pending. He also reports recent ileus and ulcerative colitis, however CT abdomen and pelvis appears normal. Patient now started on Precedex drip with IV Ativan per MARSHA S scale. Will manage in ICU for now Allergies Allergy/AdvReac Type Severity Reaction Status Date / Time Penicillins Allergy Unknown Unknown Verified 07/09/22 16:42 Home Medications Medication Instructions Recorded Confirmed Type Naloxone Nasal [place] 4mg 1 spray NA DIRECTED PRN Odor 07/09/22 07/09/22 History Zinc Oxide/ Dimethicone 1 applic topical DIRECTED PRN 07/09/22 07/09/22 History Hemorrhoids acetaminophen 325 mg capsule 650 mg PO QID PRN Pain 07/09/22 07/09/22 History (Tylenol) buspirone 10 mg tablet 10 mg PO TID 07/09/22 07/09/22 History cholecalciferol (vitamin D3) 125 125 mcg PO DAILY 07/09/22 07/09/22 History mcg (5,000 unit) tablet (Vitamin D3) clonidine HCl 0.1 mg tablet 0.1 mg PO TID PRN .LOS 07/09/22 07/09/22 History ANXIETY/RESTLESSNESS cyanocobalamin (vitamin B-12) 1,000 mcg PO DAILY 07/09/22 07/09/22 History 1,000 mcg tablet (Vitamin B-12) diazepam 5 mg tablet (Valium) 2.5 mg PO .[id number] 07/09/22 07/09/22 History diazepam 5 mg tablet (Valium) 2.5 mg PO .[id number] 07/09/22 07/09/22 History diazepam 5 mg tablet (Valium) 5 mg PO .[id number] 07/09/22 07/09/22 History diazepam 5 mg tablet (Valium) 5 mg PO DIRECTED PRN .SEE 07/09/22 07/09/22 History INSTRUCTIONS diphenhydramine HCl 25 mg capsule 25 - 50 mg PO Q6 PRN .. 07/09/22 07/09/22 History (Benadryl) famotidine 20 mg tablet 20 mg PO HS 07/09/22 07/09/22 History folic acid 1 mg tablet 1 mg PO DAILY 07/09/22 07/09/22 History gabapentin 300 mg capsule 300 mg PO TID 07/09/22 07/09/22 History garlic 1,000 mg capsule 1,000 mg PO DAILY 07/09/22 07/09/22 History hydroxyzine pamoate 50 mg capsule 50 mg PO TID PRN .los 07/09/22 07/09/22 History (Vistaril) ibuprofen 600 mg tablet 600 mg PO QID PRN Pain 07/09/22 07/09/22 History lisinopril 10 mg tablet 10 mg PO DAILY 07/09/22 07/09/22 History loperamide 2 mg capsule 4 mg PO BID PRN Diarrhea 07/09/22 07/09/22 History loratadine 10 mg tablet (Claritin) 10 mg PO DAILY PRN ALLERGIES 07/09/22 07/09/22 History melatonin 5 mg tablet 5 - 10 mg PO HS PRN Sleep 07/09/22 07/09/22 History multivitamin 1 tab PO DAILY 07/09/22 07/09/22 History niacin 500 mg tablet,extended 500 mg PO QAM 07/09/22 07/09/22 History release omega-3 fatty acids 1,000 mg 1,000 mg PO DAILY 07/09/22 07/09/22 History capsule omeprazole 40 mg capsule,delayed 40 mg PO DAILY 07/09/22 07/09/22 History release paroxetine HCl 40 mg tablet (Paxil) 40 mg PO DAILY 07/09/22 07/09/22 History saw palmetto 450 mg capsule 450 mg PO HS 07/09/22 07/09/22 History thiamine HCl (vitamin B1) 100 mg 100 mg PO DAILY 07/09/22 07/09/22 History tablet trazodone 50 mg tablet 75 mg PO HS 07/09/22 07/09/22 History umeclidinium 62.5 mcg-vilanterol 1 inh inhalation DAILY 07/09/22 07/09/22 History 25 mcg/actuation powdr for inhalation (Anoro Ellipta) Patient History Medical History Alcohol abuse Benzodiazepine abuse PPD positive Social History Smoking Status: Never smoker Do You Dip or Chew Tobacco: No; Hx Alcohol Use: Yes Alcohol type: hard liquor Hx Substance Use: Yes Last Used Substance: Days (ago) Preferred Language: [place] Communication Ability: Unable Insurance Counselor Required: No Beliefs That Will Affect Care: None Current Living Situation: Alone Other Information That Helps Us Care for You: No Feels Safe at Home: Yes Safety Concerns: Feels Safe At This Time Assistive Devices: None Review of Systems Review of Systems: All systems reviewed & are unremarkable except as noted in HPI & below Physical Exam Constitutional: WD/WN, vitals as above Eyes: PERRL, conjunctivae normal, anicteric sclerae ENMT: external ear and nose normal, oropharynx normal Neck: trachea midline, no thyromegaly Respiratory: normal respiratory effort, lungs clear to auscultation Cardiovascular: RRR, no murmur, no edema Gastrointestinal (Abdomen): normal bowel sounds, soft, nontender, no hepatosplenomegaly Musculoskeletal: no cyanosis or clubbing, extremities motor strength 5/5 Skin: no rashes, warm and dry Neurologic: PERRL, EOMI, accommodation nl, no face palsy, no dysarthria Psychiatric: Orientation: oriented x 3 Eye Contact: + fair eye contact Motor Behavior: + psychomotor agitation Speech: + pressured speech Affect: + anxious affect Results & Data Results & Data ([facility]) Vital Signs (Past 12 Hours) Vital Signs Temp Pulse Pulse Resp BP BP Pulse Ox 07/09/22 21:46 36.6 C 66 22 138/105 H 94 07/09/22 21:02 110 H 26 H 146/107 H 96 07/09/22 20:46 183/138 H 07/09/22 20:46 97 H 16 97 07/09/22 20:30 84 33 H 95 07/09/22 20:30 125/107 H 07/09/22 20:15 97 07/09/22 20:15 168/136 H 07/09/22 20:02 98 07/09/22 20:02 162/129 H 07/09/22 20:00 98 07/09/22 19:46 94 07/09/22 19:46 165/124 H 07/09/22 19:30 100 07/09/22 19:29 99 07/09/22 19:29 166/129 H 07/09/22 19:00 23 90 07/09/22 18:45 145/109 H 07/09/22 18:45 91 H 18 97 07/09/22 18:30 94 H 21 96 07/09/22 18:30 149/92 H 07/09/22 18:16 150/94 H 07/09/22 18:16 98 H 27 H 97 07/09/22 18:10 159 H 22 93 07/09/22 18:10 147/105 H 07/09/22 18:00 176 H 31 H 99 07/09/22 17:45 60 18 97 07/09/22 17:45 146/97 H 07/09/22 17:30 79 18 96 07/09/22 17:15 130/87 07/09/22 17:15 74 18 98 07/09/22 17:00 75 17 98 07/09/22 17:00 123/82 07/09/22 16:45 141/92 H 07/09/22 16:45 72 20 99 07/09/22 16:30 78 16 99 07/09/22 16:30 142/104 H 07/09/22 16:16 78 15 98 07/09/22 16:00 70 20 96 07/09/22 16:00 150/112 H 07/09/22 15:47 119/90 07/09/22 15:47 104 H 30 H 100 07/09/22 15:30 111 H 21 96 07/09/22 15:30 170/116 H 07/09/22 15:16 212 H 23 07/09/22 14:56 114 H 26 H 93 07/09/22 17:19 63 16 98 07/09/22 14:05 129 H 19 148/49 H 97 07/09/22 13:11 36.4 C L 125 H 24 172/127 H 95 O2 Del Method 07/09/22 21:46 Room Air 07/09/22 21:02 Room Air 07/09/22 20:46 07/09/22 20:46 07/09/22 20:30 07/09/22 20:30 07/09/22 20:15 07/09/22 20:15 07/09/22 20:02 07/09/22 20:02 07/09/22 20:00 07/09/22 19:46 07/09/22 19:46 07/09/22 19:30 07/09/22 19:29 07/09/22 19:29 07/09/22 19:00 07/09/22 18:45 07/09/22 18:45 07/09/22 18:30 07/09/22 18:30 07/09/22 18:16 07/09/22 18:16 07/09/22 18:10 07/09/22 18:10 07/09/22 18:00 07/09/22 17:45 07/09/22 17:45 07/09/22 17:30 07/09/22 17:15 07/09/22 17:15 07/09/22 17:00 07/09/22 17:00 07/09/22 16:45 07/09/22 16:45 07/09/22 16:30 07/09/22 16:30 07/09/22 16:16 07/09/22 16:00 07/09/22 16:00 07/09/22 15:47 07/09/22 15:47 07/09/22 15:30 07/09/22 15:30 07/09/22 15:16 07/09/22 14:56 07/09/22 17:19 Room Air 07/09/22 14:05 Room Air 07/09/22 13:11 Room Air Coding Level of Care Code INP/OBS CONSULT LVL 4, 60 MIN Diagnoses Alcohol withdrawal F10.939 Complication of substance-induced condition: with unspecified complication Benzodiazepine withdrawal F13.939 Complication of substance-induced condition: with unspecified complication Scrotal pain N50.82 Hypertension I10 Hypertension type: unspecified Tachycardia R00.0 (1) Alcohol withdrawal Complication of substance-induced condition: with unspecified complication Qualified Code(s): F10.939 - Alcohol use, unspecified with withdrawal, unspecified (2) Benzodiazepine withdrawal Complication of substance-induced condition: with unspecified complication Qualified Code(s): F13.939 - Sedative, hypnotic or anxiolytic use, unspecified with withdrawal, unspecified (3) Hypertension Hypertension type: unspecified Qualified Code(s): I10 - Essential (primary) hypertension
[2022-07-10] MEDS: ENOXAPARIN INJ 40 MG/0.4 ML SYR SQ SCH ×3 (00:14→20:06)
[2022-07-10] MEDS: dexMEDEtomidine 200 MCG/50 ML BAG IV SCH ×5 (00:18→23:26)
[2022-07-10] MEDS: LORazepam 2 MG/1 ML VIAL IV PRN ×2 (03:22→06:14)
--- NOTE | 2022-07-10 07:00 | Ultrasound Report ---
ULTRASOUND RIGHT UPPER EXTREMITY VENOUS CLINICAL HISTORY: Right arm swelling. COMPARISON STUDY: No priors.. TECHNIQUE: Real-time, grayscale, and color Doppler sonography of the deep veins of the right upper ex tremity is performed. Compression and augmentation were utilized. FINDINGS: There is no sonographic evidence of deep venous thrombosis identified in the right upper ex tremity. The right internal jugular, axillary, and brachial veins are patent and normally compressibl e. Normal venous waveforms and augmentation are seen within the right subclavian vein. The cephalic a nd basilic veins are clear. The visualized radial and ulnar veins are patent. IMPRESSION: There is no sonographic evidence of deep venous thrombosis identified in the right upper extremity. ACT 112: Negative or not required by law. Electronically signed by: Duane Vang M.D. 07/10/2022 6:59 AM
[2022-07-10] MEDS: OMEGA-3 (PURIFIED FISH OIL) 1 GM CAP PO SCH (08:24)
[2022-07-10] MEDS: MULTIVITAMIN TAB PO SCH (08:24)
[2022-07-10] MEDS: busPIRone 5 MG TAB PO SCH ×3 (08:25→20:05)
[2022-07-10] MEDS: PARoxetine HCL 20 MG TAB PO SCH (08:25)
[2022-07-10] MEDS: CHOLECALCIFEROL 5,000 UNITS 125 MCG TAB PO SCH (08:25)
[2022-07-10] MEDS: CYANOCOBALAMIN (B-12) 500 MCG TABLET PO SCH (08:25)
[2022-07-10] MEDS: NIACIN EXTENDED REL 500 MG TABCR PO SCH (08:25)
[2022-07-10] MEDS: FOLIC ACID 1 MG in SYRINGE 9.8 ML IV SCH (08:27)
[2022-07-10] MEDS: THIAMINE HCL 100 MG in SYRINGE 9 ML IV SCH (08:27)
[2022-07-10] MEDS: PANTOprazole 40 MG TAB PO SCH (08:28)
[2022-07-10] MEDS: UMECLIDINIUM/VILANTEROL 62.5/25MCG 7 PUFFS/INHALER INH SCH (08:29)
--- NOTE | 2022-07-10 08:52 | Critical Care Progress Note ---
Date of Service July 10, 2022 Assessment & Plan (1) Alcohol withdrawal: Plan: Impression: 41-year-old male presents to the ICU with refractory DTs from alcohol withdrawal/benzo withdrawal, now requiring Precedex drip and IV Ativan. 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 -On AWSS protocol. Continue to titrate down Precedex drip. Will schedule Ativan and ween as able. -Continue thiamine, folate, multivitamin Anxiety and depression/PTSD/insomnia continue home regimen of BuSpar, Paxil, trazodone Cardiac - Tachycardia, resolved initially likely symptomatic due to withdrawal. Now samantha which should improve as precedex is titrated down. HTNcontinue lisinopril Respiratory - Lungs clear to auscultation. Monitor on pulse ox GI - Abdominal painunsure of etiology, CT abdomen and pelvis negative for acute process, LFTs and lipase within normal limits RENAL/LYTES - Creatinine within normal limits, no electrolyte abnormalities. Monitor routine BMPs and replete electrolytes as indicated - Scrotal painPSA within normal limits. Scrotum ultrasound was completed and there is no evidence of torsion, orchitis, or acute epididymitis. The right testicle was noted to be heterogeneous with uncertain etiology, however, there is no discrete masses noted. Urology on board. ENDO - No diabetes or thyroid disease, ICU hyperglycemic protocol. HEME - H&H stable, monitor routine CBCs. 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 Airborne precautions removed for now. LINES/IV ACCESS - Peripheral IVs DVT ppx- SCDs, Lovenox GI ppx- protonix, pepcid Thank you for allowing us to participate in the care of this patient.Please refer to my attending physician's documentation for any further recommendations. (2) Benzodiazepine withdrawal: (3) Scrotal pain: (4) Hypertension: (5) Tachycardia: Admission and Anticipated Discharge Date Admission Date: July 09, 2022 Supervising Physician Co-Signing Physician Notes Dr. Easton was the resident-physician during care of patient. I separately evaluated patient for morris portions of the history and the exam. I was present during the critical portion of medical decision making, and I discussed the case with the resident. I generally agree with the findings and plan except for any additions/exceptions noted. Patient seen and examined at bedside. He was on 0.6 of Precedex at the time of examination He was RASS -1--2, I went down on Precedex to 0.2. He was complaining of weak pain everywhere in the body. On asking questions regarding headache, abdominal pain, chest pain, shortness of breath. The answer was yes to certain degree to everybody think. Denies any nausea or vomiting. No headache. Got total of 12 mg of Ativan overnight. Constitutional: No acute distress HEENT: EOMI, PERRLA Respiratory system: Recent entry bilaterally, no wheeze, rhonchi, mild crackles bilateral lower lobes CVS: S1-S2 positive, no murmurs or gallops, bradycardia Abdomen: Soft, nontender, nondistended, positive bowel sounds x4 Extremities: +2 pulses bilaterally radialis/ dorsalis pedis, no cyanosis, no edema Neuro: Awake alert oriented to self and time Psych: Normal mood and affect G/U: No [place]ward --Prophylaxis VTE: Lovenox GI: Pepcid, pantoprazole Lines: Peripheral Diet: Regular Plan: In/out: +831, urine output 1000 mL Try to wean off Precedex given the significant bradycardia. Start the patient on standing Ativan 2 mg every 4 hours which will be going to 12 mg in 24 hours. Can give extra if need be. Okay to give the patient food. Discontinue airborne precautions given the chest x-ray is negative. Patient has no symptoms of cough. I have personally spent 35 minutes of critical care time in the direct management of this patient. This is a life/limb threatening event. This includes time spent evaluating patient, direct bedside care, chart review, placing orders, interpretation of diagnostic studies, discussion with consultants, patient, and/or family members regarding treatment decisions, as well as other required patient management activities. This time is exclusive of all separately billable procedures, and teaching time and separate from and in addition to any other critical care service time. Subjective Patient seen at bedside this morning. He is arousable but mildly sedated and slow to respond to questions. ROS unclear at this time but endorses generalized pains and headache. Review of Systems Review of Systems: Unobtainable due to reduced consciousness Physical Exam Constitutional: WD/WN, vitals as above Eyes: + anicteric sclerae; no conjunctival abnormality ENMT: external ear and nose normal, oropharynx normal Neck: trachea midline, no thyromegaly Respiratory: normal respiratory effort, lungs clear to auscultation Cardiovascular: RRR, no murmur, no edema Gastrointestinal (Abdomen): normal bowel sounds, soft, nontender, no hepatosplenomegaly Musculoskeletal: no cyanosis or clubbing, extremities motor strength 5/5 Skin: no rashes, warm and dry Neurologic: PERRL, EOMI, accommodation nl, no face palsy, no dysarthria Psychiatric: Orientation: oriented x 3 and cooperative Eye Contact: + fair eye contact Motor Behavior: + psychomotor agitation; n tremor Affect: + blunted affect Results & Data Results & Data ([facility]) Vital Signs (Past 12 Hours) Vital Signs Temp Pulse Pulse Resp BP BP Pulse Ox 07/10/22 08:01 07/10/22 07:00 36.6 C 49 L 16 119/78 94 07/10/22 06:45 126/88 07/10/22 06:45 49 L 13 94 07/10/22 06:30 48 L 15 93 07/10/22 06:30 120/89 07/10/22 06:15 125/90 07/10/22 06:15 47 L 15 94 07/10/22 06:01 59 L 15 94 07/10/22 06:01 111/77 07/10/22 06:00 48 L 19 94 07/10/22 05:45 50 L 15 94 07/10/22 05:45 127/89 07/10/22 05:30 51 L 14 94 07/10/22 05:30 123/90 07/10/22 05:15 117/89 07/10/22 05:15 51 L 14 94 07/10/22 05:00 51 L 14 94 07/10/22 05:00 123/88 07/10/22 04:45 119/85 07/10/22 04:45 52 L 16 93 07/10/22 04:30 50 L 15 94 07/10/22 04:30 118/85 07/10/22 04:15 49 L 13 94 07/10/22 04:15 119/86 07/10/22 04:00 51 L 13 95 07/10/22 04:00 123/83 07/10/22 03:46 36.6 C 95 07/10/22 03:46 113/76 07/10/22 03:29 60 14 07/10/22 03:29 126/87 07/10/22 03:15 132/101 H 07/10/22 03:15 54 L 17 95 07/10/22 03:00 52 L 15 94 07/10/22 03:00 121/91 07/10/22 02:45 115/89 07/10/22 02:45 52 L 15 94 07/10/22 02:15 119/84 07/10/22 02:15 53 L 14 93 07/10/22 02:00 54 L 15 93 07/10/22 01:45 121/84 07/10/22 01:45 53 L 14 93 07/10/22 01:00 56 L 14 94 07/10/22 00:30 124/99 07/10/22 00:30 58 L 18 94 07/10/22 00:22 131/93 07/10/22 00:22 57 L 15 93 07/10/22 00:17 50 L 16 92 07/10/22 00:17 125/86 07/10/22 00:00 52 L 12 93 07/09/22 23:02 68 17 07/09/22 23:30 07/10/22 00:03 36.6 C 54 L 16 131/93 94 07/09/22 23:00 36.5 C 65 22 135/80 93 07/09/22 23:00 07/09/22 21:46 36.6 C 66 22 138/105 H 94 07/09/22 21:02 110 H 26 H 146/107 H 96 07/09/22 20:46 183/138 H 07/09/22 20:46 97 H 16 97 Pulse Ox O2 Del Method O2 Del Method 07/10/22 08:01 Room Air 07/10/22 07:00 Room Air 07/10/22 06:45 07/10/22 06:45 07/10/22 06:30 07/10/22 06:30 07/10/22 06:15 07/10/22 06:15 07/10/22 06:01 07/10/22 06:01 07/10/22 06:00 07/10/22 05:45 07/10/22 05:45 07/10/22 05:30 07/10/22 05:30 07/10/22 05:15 07/10/22 05:15 07/10/22 05:00 07/10/22 05:00 07/10/22 04:45 07/10/22 04:45 07/10/22 04:30 07/10/22 04:30 07/10/22 04:15 07/10/22 04:15 07/10/22 04:00 07/10/22 04:00 07/10/22 03:46 07/10/22 03:46 07/10/22 03:29 07/10/22 03:29 07/10/22 03:15 07/10/22 03:15 07/10/22 03:00 07/10/22 03:00 07/10/22 02:45 07/10/22 02:45 07/10/22 02:15 07/10/22 02:15 07/10/22 02:00 07/10/22 01:45 07/10/22 01:45 07/10/22 01:00 07/10/22 00:30 07/10/22 00:30 07/10/22 00:22 07/10/22 00:22 07/10/22 00:17 07/10/22 00:17 07/10/22 00:00 07/09/22 23:02 07/09/22 23:30 Room Air 07/10/22 00:03 Room Air 07/09/22 23:00 Room Air 07/09/22 23:00 92 Room Air 07/09/22 21:46 Room Air 07/09/22 21:02 Room Air 07/09/22 20:46 07/09/22 20:46 Laboratory Results 07/09/22 07/09/22 07/09/22 Range/Units Unknown 23:40 20:28 WBC (4.8-10.8) K/ul RBC (4.63-6.08) M/uL Hgb (14.0-18.0) g/dl Hct (40.1-51.0) % MCV (80.0-100.0) fL MCH (25.0-34.0) pg MCHC (32.0-36.0) g/dL RDW Std Deviation (36.4-46.3) fL RDW Coeff of Cammie (11.5-14.5) % Plt Count (130-400) K/uL MPV (9.4-12.4) fL Immature Gran % (Auto) % Neut % (Auto) % Lymph % (Auto) % [place] % (Auto) % Eos % (Auto) % Baso % (Auto) % Neut # (Auto) (1.4-6.5) K/uL Lymph # (Auto) (1.2-3.4) K/uL [place] # (Auto) (0.24-0.82) K/uL Eos # (Auto) (0-0.50) K/uL Baso # (Auto) (0-0.2) K/uL Immature Gran # (Auto) (0.00-0.02) K/uL Sodium (136-145) mmol/L Potassium (3.5-5.1) mmol/L Chloride (98-107) mmol/L Carbon Dioxide (21-32) mmol/L Anion Gap (3-11) BUN (6-23) mg/dl Creatinine (0.6-1.4) mg/dl Est Cr Clr Drug Dosing ml/min Est GFR ( Amer) ml/min Est GFR (Non-Af Amer) ml/min BUN/Creatinine Ratio (10-20) Glucose (70-99(Fasting)) mg/dl Calcium (8.5-10.1) mg/dl Magnesium (1.7-2.4) mg/dl Total Bilirubin (0.2-1.0) mg/dl AST (13-39) U/L ALT (7-52) U/L Alkaline Phosphatase (34-104) U/L Troponin I High Sens (0-20) pg/ml Total Protein (6.0-8.3) gm/dl Albumin (3.4-5.0) gm/dl Globulin (2.5-4.0) gm/dl Albumin/Globulin Ratio (0.9-2) Lipase (11-82) U/L Prostate Specific Ag 0.436 (0-4) ng/ml Free PSA 0.18 (0-2.0) ng/ml % Free PSA 41.3 % TSH (0.300-4.500) uIu/ml Urine Color Urine Appearance (Clear) Urine pH (4.5-7.5) Ur Specific [place] (1.000-1.030) Urine Protein (Negative) Urine Glucose (UA) (Negative) Urine Ketones (Negative) Urine Blood (Negative) Urine Nitrite (Negative) Urine Bilirubin (Negative) Urine Urobilinogen (Negative) Ur Leukocyte Esterase (Negative) Nasal Screen MRSA (PCR) Negative (Negative) SARS-CoV-2 (PCR) NEGATIVE (Negative) Influenza Type A (PCR) Negative (Neg) Influenza Type B (PCR) Negative (Neg) RSV (RT-PCR) Negative (Neg) TB Test (QFT) Gold Plus TB Test (QFT) Nil TB Test Mitogen - Nil TB Test Ag - Nil 1 TB Test Ag - Nil 2 07/09/22 07/09/22 07/09/22 Range/Units 16:38 15:45 14:00 WBC (4.8-10.8) K/ul RBC (4.63-6.08) M/uL Hgb (14.0-18.0) g/dl Hct (40.1-51.0) % MCV (80.0-100.0) fL MCH (25.0-34.0) pg MCHC (32.0-36.0) g/dL RDW Std Deviation (36.4-46.3) fL RDW Coeff of Cammie (11.5-14.5) % Plt Count (130-400) K/uL MPV (9.4-12.4) fL Immature Gran % (Auto) % Neut % (Auto) % Lymph % (Auto) % [place] % (Auto) % Eos % (Auto) % Baso % (Auto) % Neut # (Auto) (1.4-6.5) K/uL Lymph # (Auto) (1.2-3.4) K/uL [place] # (Auto) (0.24-0.82) K/uL Eos # (Auto) (0-0.50) K/uL Baso # (Auto) (0-0.2) K/uL Immature Gran # (Auto) (0.00-0.02) K/uL Sodium (136-145) mmol/L Potassium (3.5-5.1) mmol/L Chloride (98-107) mmol/L Carbon Dioxide (21-32) mmol/L Anion Gap (3-11) BUN (6-23) mg/dl Creatinine (0.6-1.4) mg/dl Est Cr Clr Drug Dosing ml/min Est GFR ( Amer) ml/min Est GFR (Non-Af Amer) ml/min BUN/Creatinine Ratio (10-20) Glucose (70-99(Fasting)) mg/dl Calcium (8.5-10.1) mg/dl Magnesium (1.7-2.4) mg/dl Total Bilirubin (0.2-1.0) mg/dl AST (13-39) U/L ALT (7-52) U/L Alkaline Phosphatase (34-104) U/L Troponin I High Sens (0-20) pg/ml Total Protein (6.0-8.3) gm/dl Albumin (3.4-5.0) gm/dl Globulin (2.5-4.0) gm/dl Albumin/Globulin Ratio (0.9-2) Lipase (11-82) U/L Prostate Specific Ag (0-4) ng/ml Free PSA (0-2.0) ng/ml % Free PSA % TSH 0.725 (0.300-4.500) uIu/ml Urine Color Yellow Urine Appearance Clear (Clear) Urine pH 7.5 (4.5-7.5) Ur Specific [place] 1.015 (1.000-1.030) Urine Protein Negative (Negative) Urine Glucose (UA) Negative (Negative) Urine Ketones Negative (Negative) Urine Blood Negative (Negative) Urine Nitrite Negative (Negative) Urine Bilirubin Negative (Negative) Urine Urobilinogen Negative (Negative) Ur Leukocyte Esterase Negative (Negative) Nasal Screen MRSA (PCR) (Negative) SARS-CoV-2 (PCR) (Negative) Influenza Type A (PCR) (Neg) Influenza Type B (PCR) (Neg) RSV (RT-PCR) (Neg) TB Test (QFT) Gold Plus Pending TB Test (QFT) Nil Pending TB Test Mitogen - Nil Pending TB Test Ag - Nil 1 Pending TB Test Ag - Nil 2 Pending 07/09/22 07/09/22 Range/Units 14:00 14:00 WBC 6.84 (4.8-10.8) K/ul RBC 4.79 (4.63-6.08) M/uL Hgb 15.3 (14.0-18.0) g/dl Hct 45.1 (40.1-51.0) % MCV 94.2 (80.0-100.0) fL MCH 31.9 (25.0-34.0) pg MCHC 33.9 (32.0-36.0) g/dL RDW Std Deviation 46.9 H (36.4-46.3) fL RDW Coeff of Cammie 13.6 (11.5-14.5) % Plt Count 267 (130-400) K/uL MPV 9.3 L (9.4-12.4) fL Immature Gran % (Auto) 0.4 % Neut % (Auto) 73.0 % Lymph % (Auto) 15.2 % [place] % (Auto) 10.2 % Eos % (Auto) 0.6 % Baso % (Auto) 0.6 % Neut # (Auto) 4.99 (1.4-6.5) K/uL Lymph # (Auto) 1.04 L (1.2-3.4) K/uL [place] # (Auto) 0.70 (0.24-0.82) K/uL Eos # (Auto) 0.04 (0-0.50) K/uL Baso # (Auto) 0.04 (0-0.2) K/uL Immature Gran # (Auto) 0.03 H (0.00-0.02) K/uL Sodium 138 (136-145) mmol/L Potassium 4.0 (3.5-5.1) mmol/L Chloride 103 (98-107) mmol/L Carbon Dioxide 26 (21-32) mmol/L Anion Gap 9 (3-11) BUN 11 (6-23) mg/dl Creatinine 1.04 (0.6-1.4) mg/dl Est Cr Clr Drug Dosing 115.6 ml/min Est GFR ( Amer) 102.9 ml/min Est GFR (Non-Af Amer) 88.8 ml/min BUN/Creatinine Ratio 10.6 (10-20) Glucose 91 (70-99(Fasting)) mg/dl Calcium 10.1 (8.5-10.1) mg/dl Magnesium 2.1 (1.7-2.4) mg/dl Total Bilirubin 0.5 (0.2-1.0) mg/dl AST 43 H (13-39) U/L ALT 34 (7-52) U/L Alkaline Phosphatase 79 (34-104) U/L Troponin I High Sens 3.2 (0-20) pg/ml Total Protein 8.0 (6.0-8.3) gm/dl Albumin 4.6 (3.4-5.0) gm/dl Globulin 3.4 (2.5-4.0) gm/dl Albumin/Globulin Ratio 1.4 (0.9-2) Lipase 35 (11-82) U/L Prostate Specific Ag (0-4) ng/ml Free PSA (0-2.0) ng/ml % Free PSA % TSH (0.300-4.500) uIu/ml Urine Color Urine Appearance (Clear) Urine pH (4.5-7.5) Ur Specific [place] (1.000-1.030) Urine Protein (Negative) Urine Glucose (UA) (Negative) Urine Ketones (Negative) Urine Blood (Negative) Urine Nitrite (Negative) Urine Bilirubin (Negative) Urine Urobilinogen (Negative) Ur Leukocyte Esterase (Negative) Nasal Screen MRSA (PCR) (Negative) SARS-CoV-2 (PCR) (Negative) Influenza Type A (PCR) (Neg) Influenza Type B (PCR) (Neg) RSV (RT-PCR) (Neg) TB Test (QFT) Gold Plus TB Test (QFT) Nil TB Test Mitogen - Nil TB Test Ag - Nil 1 TB Test Ag - Nil 2 Resident Activity Tracking Resident Involvement: Resident Care Provided Care Provided: Adult Hospital Medicine (1) Alcohol withdrawal Complication of substance-induced condition: with unspecified complication Qualified Code(s): F10.939 - Alcohol use, unspecified with withdrawal, unspecified (2) Benzodiazepine withdrawal Complication of substance-induced condition: with unspecified complication Qualified Code(s): F13.939 - Sedative, hypnotic or anxiolytic use, unspecified with withdrawal, unspecified (3) Hypertension Hypertension type: unspecified Qualified Code(s): I10 - Essential (primary) hypertension
[2022-07-10] MEDS ORDERED: THIAMINE HCL 100 MG TAB PO SCH (09:00)
[2022-07-10] MEDS ORDERED: lisinopril 10 MG TAB PO SCH (09:00)
--- NOTE | 2022-07-10 09:01 | Ultrasound Report ---
US scrotum/testicle CLINICAL HISTORY: 41 years-old Male with testicular pain. Acute scrotal pain COMPARISON STUDY: CT abdomen and pelvis of same day TECHNIQUE: Real-time, grayscale, and color Doppler sonography of the testes and scrotum is performed. Images are reviewed in the transverse and longitudinal planes. FINDINGS: RIGHT HEMISCROTUM: The right testis measures 3.2 x 2.8 x 2.2 cm and the parenchyma appears diffusely heterogeneous. No intratesticular mass is seen. Normal-appearing arterial inflow is present within th e right testicle. The right epididymal head appears normal. No hydrocele identified. Right-sided vari cocele. LEFT HEMISCROTUM: The left testis measures 4.6 x 2.0 x 3.1 cm and the parenchyma appears unremarkable . No intratesticular mass is seen. Normal-appearing arterial inflow is present within the left testic le. The left epididymal head appears normal. No hydrocele identified. Right-sided varicocele. IMPRESSION: 1. Nonspecific diffusely heterogeneous appearance of the right testicle without discrete mass or evid ence of testicular torsion. Urology consultation with 3 month follow-up ultrasound recommended. 2. Bilateral varicoceles. ACT 112: Negative or not required by law. The above report was generated using voice recognition software. It may contain grammatical, syntax o r spelling errors. Electronically signed by: Marcel Hoyt M.D. 07/10/2022 8:59 AM
[2022-07-10 09:27] LABS: Hematocrit (blood only) 39.9 % (40.1-51.0); Hemoglobin 13.4 g/dl (14.0-18.0); Mean Corpuscular Hemoglobin 32.4 pg (25.0-34.0); Mean Corpuscular Hgb Conc 33.6 g/dL (32.0-36.0); Mean Corpuscular Volume 96.4 fL (80.0-100.0); Mean Platelet Volume 9.7 fL (9.4-12.4); Platelet Count 234 K/uL (130-400); RDW Coefficient of Variation 13.7 % (11.5-14.5); RDW Standard Deviation 48.5 fL (36.4-46.3); Red Blood Count 4.14 M/uL (4.63-6.08); White Blood Count 4.02 K/ul (4.8-10.8)
[2022-07-10 09:56] LABS: Albumin Globulin Ratio 1.4 (0.9-2); Albumin Level 3.8 gm/dl (3.4-5.0); BUN Creatinine Ratio 9.9 (10-20); Bilirubin,Total 0.5 mg/dl (0.2-1.0); Calcium 9.1 mg/dl (8.5-10.1); Creatinine Clr Calc Pharmacy 119.9 ml/min; Est GFR (African American) 106.6 ml/min; Globulin 2.7 gm/dl (2.5-4.0); Magnesium 2.2 mg/dl (1.7-2.4); Phosphorus 3.8 mg/dl (2.5-4.9); Potassium 3.8 mmol/L (3.5-5.1); Total Protein 6.5 gm/dl (6.0-8.3)
[2022-07-10] MEDS: LORazepam 2 mg IV INJ IV SCH ×4 (10:15→21:33)
[2022-07-10 10:16] LABS: INR 1.1 (0.9-1.1); Prothrombin Time 11.2 Seconds (9.0-12.0)
--- NOTE | 2022-07-10 10:36 | Communication Note ---
Date of Service: July 10, 2022 Scrotal US reviewed and showed nonspecific diffusely heterogeneous appearance of the right testicle without discrete mass or evidence of testicular torsion. Bilateral varicoceles. PSA 0.436. Plan: No acute intervention at this time. Continue supportive care and management per primary service. Plan to repeat scrotal US in 3 months. Will arrange outpatient follow-up with our service with repeat scrotal US.
--- NOTE | 2022-07-10 11:56 | Billing Data ---
Date of Service July 10, 2022 Coding Level of Care Code Critical Care 1st 30-74 mins Time Spent (min) 35
[2022-07-10] MEDS ORDERED: GABAPENTIN 600 MG TAB PO SCH (12:45)
[2022-07-10] MEDS ORDERED: ACETAMINOPHEN 1,000 MG/100 ML VIAL IV STA (14:18)
[2022-07-10] MEDS ORDERED: LORazepam 2 MG/1 ML VIAL IV STA ×2 (14:57→23:08)
[2022-07-10] MEDS: lisinopril 10 MG TAB PO SCH (20:07)
[2022-07-10] MEDS: FAMOTIDINE 20 MG TAB PO SCH (20:07)
[2022-07-10] MEDS: traZODone HCL 50 MG TAB PO SCH (20:10)
--- NOTE | 2022-07-10 22:26 | Hospitalist Progress Note ---
Date of Service July 10, 2022 Assessment & Plan (1) Alcohol withdrawal: Plan: Patient going through alcohol withdrawal. Now on precedex, will titrate drip off. Will continue to titrate off ativan Patient also takes Gabapentin as an outpatient, this was held initially due to gabapentin load, this will likely need to be restarted. appreciate input from Lens Assistant. (2) Benzodiazepine withdrawal with perceptual disturbance: Plan: as above. 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 NO symptoms, chest x ray negative. Pulmonary removed precautions but ID control wants this to remain. (4) Scrotal pain: Plan: consult urology: U/S of scrotum completed. will require repeat in 3 months with outpatient followup. Admission and Anticipated Discharge Date Admission Date: July 09, 2022 Subjective Overnight patient required to be transferred to the ICU as he was monster into DTs. Patient reports feeling much better today. He states he is less agitated. Review of Systems Review of Systems: All systems reviewed & are unremarkable except as noted in HPI & below Physical Exam Constitutional: WD/WN, vitals as above Eyes: PERRL, conjunctivae normal, anicteric sclerae ENMT: external ear and nose normal, oropharynx normal Neck: trachea midline, no thyromegaly Respiratory: normal respiratory effort, lungs clear to auscultation Cardiovascular: RRR, no murmur, no edema Gastrointestinal (Abdomen): normal bowel sounds, soft, nontender, no hepatosplenomegaly Musculoskeletal: no cyanosis or clubbing, extremities motor strength 5/5 Skin: no rashes, warm and dry (erythema on right wrist from PPD, no induration however, past 72h) Neurologic: PERRL, EOMI, accommodation nl, no face palsy, no dysarthria Psychiatric: A+Ox3, euthymic affect Lymphatic: no cervical or axillary lymphadenopathy Results & Data Results & Data ([facility]) Vital Signs (Past 12 Hours) Vital Signs Temp Pulse Pulse Resp BP BP Pulse Ox 07/10/22 17:00 07/10/22 16:20 106/70 07/10/22 16:20 58 L 14 95 07/10/22 16:15 107/72 07/10/22 16:15 59 L 14 96 07/10/22 16:10 108/70 07/10/22 16:10 59 L 13 95 07/10/22 16:05 109/68 07/10/22 16:05 57 L 13 95 07/10/22 16:00 56 L 12 95 07/10/22 15:55 108/69 07/10/22 15:55 57 L 14 95 07/10/22 15:50 112/69 07/10/22 15:50 56 L 15 95 07/10/22 15:45 111/70 07/10/22 15:45 56 L 14 95 07/10/22 15:40 111/70 07/10/22 15:40 55 L 16 95 07/10/22 15:35 57 L 17 95 07/10/22 15:35 110/78 07/10/22 15:30 54 L 21 94 07/10/22 15:30 119/87 07/10/22 15:25 52 L 17 94 07/10/22 15:25 131/89 07/10/22 15:20 117/83 07/10/22 15:20 55 L 20 93 07/10/22 15:15 106/74 07/10/22 15:15 56 L 15 94 07/10/22 15:05 161/136 H 07/10/22 15:05 87 27 H 93 07/10/22 15:00 28 H 96 07/10/22 14:56 71 31 H 97 07/10/22 14:56 136/71 07/10/22 14:51 132/71 07/10/22 14:51 77 22 98 07/10/22 14:35 124/94 07/10/22 14:35 125 H 22 91 07/10/22 14:31 60 19 86 L 07/10/22 14:31 119/75 07/10/22 14:30 69 22 94 07/10/22 14:29 65 39 H 91 07/10/22 14:29 131/99 07/10/22 16:00 36.8 C 07/10/22 15:20 36.6 C 56 L 20 124/66 95 07/10/22 14:25 124/97 07/10/22 14:25 26 H 90 07/10/22 14:23 146/107 H 07/10/22 14:23 86 24 93 07/10/22 14:00 45 H 81 L 07/10/22 14:28 36.6 C 07/10/22 13:30 50 L 13 93 07/10/22 13:30 112/73 07/10/22 13:00 48 L 12 93 07/10/22 13:00 105/69 07/10/22 12:30 50 L 13 93 07/10/22 12:30 101/65 07/10/22 12:00 99/63 L 07/10/22 12:00 47 L 17 94 07/10/22 11:30 59 L 13 90 07/10/22 11:15 102/69 07/10/22 11:15 51 L 12 92 07/10/22 11:00 52 L 13 93 07/10/22 11:00 103/68 07/10/22 10:47 97/71 L 07/10/22 10:47 63 19 93 07/10/22 12:00 36.9 C 47 L 14 99/63 L 94 07/10/22 10:31 54 L 13 88 L 07/10/22 10:31 118/102 H 07/10/22 10:30 55 L 13 93 Pulse Ox O2 Del Method O2 Del Method 07/10/22 17:00 92 Room Air 07/10/22 16:20 07/10/22 16:20 07/10/22 16:15 07/10/22 16:15 07/10/22 16:10 07/10/22 16:10 07/10/22 16:05 07/10/22 16:05 07/10/22 16:00 07/10/22 15:55 07/10/22 15:55 07/10/22 15:50 07/10/22 15:50 07/10/22 15:45 07/10/22 15:45 07/10/22 15:40 07/10/22 15:40 07/10/22 15:35 07/10/22 15:35 07/10/22 15:30 07/10/22 15:30 07/10/22 15:25 07/10/22 15:25 07/10/22 15:20 07/10/22 15:20 07/10/22 15:15 07/10/22 15:15 07/10/22 15:05 07/10/22 15:05 07/10/22 15:00 07/10/22 14:56 07/10/22 14:56 07/10/22 14:51 07/10/22 14:51 07/10/22 14:35 07/10/22 14:35 07/10/22 14:31 07/10/22 14:31 07/10/22 14:30 07/10/22 14:29 07/10/22 14:29 07/10/22 16:00 07/10/22 15:20 Room Air 07/10/22 14:25 07/10/22 14:25 07/10/22 14:23 07/10/22 14:23 07/10/22 14:00 07/10/22 14:28 07/10/22 13:30 07/10/22 13:30 07/10/22 13:00 07/10/22 13:00 07/10/22 12:30 07/10/22 12:30 07/10/22 12:00 07/10/22 12:00 07/10/22 11:30 07/10/22 11:15 07/10/22 11:15 07/10/22 11:00 07/10/22 11:00 07/10/22 10:47 07/10/22 10:47 07/10/22 12:00 Room Air 07/10/22 10:31 07/10/22 10:31 07/10/22 10:30 PG Care Time/CCT Total # of Minutes Spent Total Time Spent with Patient: Total time spent is greater than 50% in coordination of care (as documented) at patient's floor/unit and/or counseling patient: Coding Level of Care Code 09816 SUB INP/OBS CARE 3/50MIN Diagnoses Alcohol withdrawal F10.939 Benzodiazepine withdrawal with perceptual disturbance F13.932 PPD positive R76.11 Scrotal pain N50.82
[2022-07-11] MEDS: LORazepam 2 MG/1 ML VIAL IV SCH ×2 (03:18→07:39)
[2022-07-11] MEDS: dexMEDEtomidine 200 MCG/50 ML BAG IV SCH ×2 (03:18→07:50)
[2022-07-11 05:53] LABS: BUN Creatinine Ratio 15.2 (10-20); Calcium 9.7 mg/dl (8.5-10.1); Creatinine Clr Calc Pharmacy 153.3 ml/min; Est GFR (African American) 129.3 ml/min; Est GFR (Non-African American) 111.5 ml/min; Phosphorus 3.8 mg/dl (2.5-4.9); Potassium 3.7 mmol/L (3.5-5.1)
[2022-07-11 06:20] LABS: Basophils # (auto) 0.03 K/uL (0-0.2); Basophils % (auto) 0.5 %; Eosinophils # (auto) 0.18 K/uL (0-0.50); Eosinophils % (auto) 3.2 %; Immature Granulocytes # (auto) 0.08 K/uL (0.00-0.02); Immature Granulocytes % (auto) 1.4 %; Lymphocytes # (auto) 0.98 K/uL (1.2-3.4); Lymphocytes % (auto) 17.3 %; Mean Corpuscular Hemoglobin 31.8 pg (25.0-34.0); Mean Corpuscular Hgb Conc 34.1 g/dL (32.0-36.0); Mean Corpuscular Volume 93.2 fL (80.0-100.0); Mean Platelet Volume 9.9 fL (9.4-12.4); Monocytes # (auto) 0.73 K/uL (0.24-0.82); Monocytes % (auto) 12.9 %; Neutrophils # (auto) 3.67 K/uL (1.4-6.5); Neutrophils % (auto) 64.7 %; Platelet Count 264 K/uL (130-400); RDW Coefficient of Variation 13.3 % (11.5-14.5); RDW Standard Deviation 46.2 fL (36.4-46.3); Red Blood Count 4.72 M/uL (4.63-6.08); White Blood Count 5.67 K/ul (4.8-10.8)
[2022-07-11] MEDS ORDERED: POTASSIUM CHLORIDE CRTAB 20 MEQ TABCR PO STA (07:40)
[2022-07-11] MEDS ORDERED: MAGNESIUM SULFATE / D5W 1 GM/100 ML BAG IV ONE (07:40)
[2022-07-11] MEDS: CHOLECALCIFEROL 5,000 UNITS 125 MCG TAB PO SCH (07:46)
[2022-07-11] MEDS: PANTOprazole 40 MG TAB PO SCH (07:46)
[2022-07-11] MEDS: NIACIN EXTENDED REL 500 MG TABCR PO SCH (07:46)
[2022-07-11] MEDS: MULTIVITAMIN TAB PO SCH (07:47)
[2022-07-11] MEDS: FOLIC ACID 1 MG in SYRINGE 9.8 ML IV SCH (07:47)
[2022-07-11] MEDS: PARoxetine HCL 20 MG TAB PO SCH (07:47)
[2022-07-11] MEDS: THIAMINE HCL 100 MG in SYRINGE 9 ML IV SCH (07:47)
[2022-07-11] MEDS: OMEGA-3 (PURIFIED FISH OIL) 1 GM CAP PO SCH (07:47)
[2022-07-11] MEDS: busPIRone 5 MG TAB PO SCH ×2 (07:48→13:26)
[2022-07-11] MEDS: CYANOCOBALAMIN (B-12) 500 MCG TABLET PO SCH (07:49)
[2022-07-11] MEDS: UMECLIDINIUM/VILANTEROL 62.5/25MCG 7 PUFFS/INHALER INH SCH (07:49)
[2022-07-11] MEDS: ENOXAPARIN INJ 40 MG/0.4 ML SYR SQ SCH ×3 (07:50→20:10)
--- NOTE | 2022-07-11 08:02 | Hospitalist Progress Note ---
Date of Service July 11, 2022 Assessment & Plan (1) Alcohol withdrawal: Plan: Patient going through alcohol withdrawal. Required precedex, discontinued Scheduled Librium and as needed Ativan gabapentin load, and taper (2) Benzodiazepine withdrawal with perceptual disturbance: (3) PPD positive: Plan: questionable PPD positive, this was completed on Friday, over 72 hours, however, no induration noted, only eyrthema at this time. NO symptoms, chest x ray negative. Pulmonary removed precautions but ID control wants this to remain. (4) Scrotal pain: Plan: consult urology: U/S of scrotum completed. will require repeat in 3 months with outpatient followup. Admission and Anticipated Discharge Date Admission Date: July 09, 2022 Subjective Patient having significant alcohol withdrawal symptoms. Initiating gabapentin and scheduled Librium with backup as needed Ativan. Patient came to us from [facility] and wishes to return there blood pressure is much better controlled as the day moves forward but his tachycardia persists Review of Systems Review of Systems: Moderate to severe distress and agitation no headache, no visual changes no speech or swallowing issues no chest pain, pressure complains of sensation of palpitations no shortness of breath, cough or wheezes no abdominal pain, nausea or vomiting, diarrhea or constipation no dysuria, hematuria or frequency no focal joint pain or swelling no back pain, CVA tenderness or radicular pain no bruising, bleeding or rashes no focal signs of weakness or numbness or altered sensation Significant anxiety and agitation Physical Exam Physical Exam: The patient appeared well nourished and normally developed. Vital signs as documented. Head exam is normocephalic atraumatic Neck is without JVD, thyromegaly, or carotid bruits. Lungs are clear to auscultation, no focal loss of breath sounds Cardiac exam, Rhythm is regular.. No murmurs, rubs or gallops. Abdominal exam reveals normal bowel sounds, soft non tender, no masses Extremities are nonedematous and both pedal pulses are present Neurologic exam is alert and oriented, tremulous and anxious but no asterixis is seen Skin is without bruises or rashes Psychologically is with anxiety Results & Data Results & Data ([facility]) Vital Signs (Past 12 Hours) Vital Signs Temp Pulse Resp BP Pulse Ox O2 Del Method 07/11/22 06:00 56 L 13 01/05/23 06:00 98/53 L 96 01/05/23 05:30 111/72 07/11/22 05:30 61 17 07/11/22 05:00 65 18 07/11/22 05:00 131/82 07/11/22 04:30 104/64 07/11/22 04:30 60 15 07/11/22 04:00 63 17 96 07/11/22 04:00 106/63 07/11/22 03:30 58 L 17 07/11/22 03:30 104/63 07/11/22 03:00 60 13 07/11/22 03:00 105/65 07/11/22 02:30 56 L 14 07/11/22 02:30 111/77 07/11/22 03:44 97.7 F 07/11/22 02:00 63 19 07/11/22 02:00 115/72 07/11/22 01:31 97/84 L 07/11/22 01:31 94 H 14 07/11/22 01:00 64 18 07/11/22 00:31 59 L 19 07/11/22 00:31 141/120 H 07/11/22 00:00 55 L 17 07/11/22 00:00 113/72 07/10/22 23:31 79 17 07/10/22 23:31 134/113 H 07/10/22 23:29 97.9 F 95 Room Air 07/10/22 23:09 120/98 07/10/22 23:09 87 23 07/10/22 23:01 63 15 07/10/22 23:01 117/88 07/10/22 23:00 63 14 07/10/22 22:31 126/85 07/10/22 22:31 62 18 07/10/22 22:01 59 L 13 07/10/22 22:01 138/81 07/10/22 22:00 74 19 07/10/22 21:30 107/67 07/10/22 21:30 70 18 07/10/22 20:31 91 H 19 96 07/10/22 20:31 162/109 H 07/10/22 20:01 146/100 H 07/10/22 20:01 70 15 07/10/22 20:00 75 22 PG Care Time/CCT Total # of Minutes Spent Total Time Spent with Patient: Total time spent is greater than 50% in coordination of care (as documented) at patient's floor/unit and/or counseling patient: Coding Level of Care Code 36983 SUB INP/OBS CARE 350MIN Diagnoses Alcohol withdrawal F10.939 Benzodiazepine withdrawal with perceptual disturbance F13.932 PPD positive R76.11 Scrotal pain N50.82
--- NOTE | 2022-07-11 08:23 | Critical Care Progress Note ---
Date of Service July 11, 2022 Assessment & Plan (1) Alcohol withdrawal: Plan: Impression: 41-year-old male presents to the ICU with refractory DTs from alcohol withdrawal/benzo withdrawal requiring Precedex drip and IV Ativan. Neuro - Alcohol withdrawal/benzo withdrawalpatient reports drinking vodka for many years.He also reported prescription for 6 mg of Ativan daily for anxiety, PTSD, and insomnia -Now experiencing [facility]Persistent withdrawal symptoms despite multiple doses of IV Ativan and now requiring Precedex drip. -On AWSS protocol. Precedex d/c'd for ~24 hours. Will continue ativan 3mg IV q6h prn, ween as able. -Continue thiamine, folate, multivitamin Anxiety and depression/PTSD/insomnia continue home regimen of BuSpar, Paxil, trazodone Cardiac - Tachycardia, resolved initially likely symptomatic due to withdrawal. Now samantha which should continue to improve as precedex was stopped yesterday. HTNcontinue lisinopril Respiratory - Lungs clear to auscultation.Monitor on pulse ox. GI - Abdominal painunsure of etiology but patient does endorse h/o IBS, ?crohns, internal hemorrhoids. -CT abdomen and pelvis negative for acute process, LFTs and lipase within normal limits RENAL/LYTES - Creatinine within normal limits, no electrolyte abnormalities. Monitor routine BMPs and replete electrolytes as indicated - Scrotal painPSA within normal limits. Scrotum ultrasound was completed and there is no evidence of torsion, orchitis, or acute epididymitis. The right testicle was noted to be heterogeneous with uncertain etiology, however, there is no discrete masses noted. Urology on board. ENDO - No diabetes or thyroid disease, ICU hyperglycemic protocol. HEME - H&H stable, monitor routine CBCs. ID - No indication for infectious process at this time Patient does state questionable positive TB test from last week with erythema at PPD site without induration. Chest x-ray negative for active disease.Quant from gold pending. Airborne precautions removed. LINES/IV ACCESS - Peripheral IVs DVT ppx- SCDs, Lovenox GI ppx- protonix, pepcid Thank you for allowing us to participate in the care of this patient.Please refer to my attending physician's documentation for any further recommendations. Hemodynamically stable for downgrade from the ICU. (2) Benzodiazepine withdrawal: (3) Scrotal pain: (4) Hypertension: (5) Tachycardia: Admission and Anticipated Discharge Date Admission Date: July 09, 2022 Supervising Physician Co-Signing Physician Notes Dr. Easton was the resident-physician during care of patient. I separately evaluated patient for morris portions of the history and the exam. I was present during the critical portion of medical decision making, and I discussed the case with the resident. I generally agree with the findings and plan except for any additions/exceptions noted. Patient seen and examined at bedside. He was on 0.6 of Precedex at the time of examination He was RASS -1--2, I went down on Precedex to 0.2. He was complaining of weak pain everywhere in the body. On asking questions regarding headache, abdominal pain, chest pain, shortness of breath. The answer was yes to certain degree to everybody think. Denies any nausea or vomiting. No headache. Got total of 12 mg of Ativan overnight. Constitutional: No acute distress HEENT: EOMI, PERRLA Respiratory system: Good air entry bilaterally no wheeze, no rhonchi, mild crackles bilateral lower lobes CVS: S1-S2 positive, no murmurs or gallops Abdomen: Soft, nontender, nondistended, positive bowel sounds x4 Extremities: +2 pulses bilaterally radialis/ dorsalis pedis, no cyanosis, no edema Neuro: Awake alert oriented to self, place and time Psych: Normal mood and affect G/U: No Woodward --Prophylaxis VTE: Lovenox GI: Pepcid, pantoprazole Lines: Peripheral Diet: Regular Plan: In/out: Negative seen 928, urine output 3726 Magnesium and potassium are being replaced. Patient has been off Precedex for more than 24 hours. He had still been needing Ativan every 4-6 hours Will continue with Ativan 3 mg every 6 hours as needed. Continue with CIWA protocol Patient is hemodynamically stable to be downgrade to medical floor Patient is PPD positive, chest x-ray is clean. Has no complaints of coughing. Has no night sweats. No unintentional weight loss. 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 Does not need isolation for that Please note the above document was generated using voice recognition software. It may contain grammatical, syntax or spelling errors.Any formal questions or concerns about the content, text or information contained within the body of this dictation should be directly addressed to the provider for clarification. Subjective Patient seen at bedside this morning. More alert and talkative today since Precedex now off. Endorses generalized pains especially in his abdomen along with swelling in his legs and hands. Review of Systems Review of Systems: All systems reviewed & are unremarkable except as noted in HPI & below Physical Exam Constitutional: WD/WN, vitals as above Eyes: + anicteric sclerae; no conjunctival abnormality ENMT: external ear and nose normal, oropharynx normal Neck: trachea midline, no thyromegaly Respiratory: normal respiratory effort, lungs clear to auscultation Cardiovascular: RRR, no murmur, no edema Gastrointestinal (Abdomen): normal bowel sounds, soft, nontender, no hepatosplenomegaly Musculoskeletal: no cyanosis or clubbing, extremities motor strength 5/5 Skin: no rashes, warm and dry Neurologic: PERRL, EOMI, accommodation nl, no face palsy, no dysarthria Psychiatric: Orientation: oriented x 3 and cooperative Eye Contact: + fair eye contact Motor Behavior: + psychomotor agitation; n tremor Results & Data Results & Data ([facility]) Vital Signs (Past 12 Hours) Vital Signs Temp Pulse Resp BP Pulse Ox O2 Del Method 07/11/22 06:00 56 L 13 07/11/22 06:00 98/53 L 96 07/11/22 05:30 111/72 07/11/22 05:30 61 17 07/11/22 05:00 65 18 07/11/22 05:00 131/82 07/11/22 04:30 104/64 07/11/22 04:30 60 15 07/11/22 04:00 63 17 96 07/11/22 04:00 106/63 07/11/22 03:30 58 L 17 07/11/22 03:30 104/63 07/11/22 03:00 60 13 07/11/22 03:00 105/65 07/11/22 02:30 56 L 14 07/11/22 02:30 111/77 07/11/22 03:44 36.5 C 07/11/22 02:00 63 19 07/11/22 02:00 115/72 07/11/22 01:31 97/84 L 07/11/22 01:31 94 H 14 07/11/22 01:00 64 18 07/11/22 00:31 59 L 19 07/11/22 00:31 141/120 H 07/11/22 00:00 55 L 17 07/11/22 00:00 113/72 07/10/22 23:31 79 17 07/10/22 23:31 134/113 H 07/10/22 23:29 36.6 C 95 Room Air 07/10/22 23:09 120/98 07/10/22 23:09 87 23 07/10/22 23:01 63 15 07/10/22 23:01 117/88 07/10/22 23:00 63 14 07/10/22 22:31 126/85 07/10/22 22:31 62 18 07/10/22 22:01 59 L 13 07/10/22 22:01 138/81 07/10/22 22:00 74 19 07/10/22 21:30 107/67 07/10/22 21:30 70 18 07/10/22 20:31 91 H 19 96 07/10/22 20:31 162/109 H Laboratory Results 07/11/22 07/11/22 07/10/22 Range/Units 04:47 04:47 09:15 WBC 5.67 (4.8-10.8) K/ul RBC 4.72 (4.63-6.08) M/uL Hgb 15.0 (14.0-18.0) g/dl Hct 44.0 (40.1-51.0) % MCV 93.2 (80.0-100.0) fL MCH 31.8 (25.0-34.0) pg MCHC 34.1 (32.0-36.0) g/dL RDW Std Deviation 46.2 (36.4-46.3) fL RDW Coeff of Cammie 13.3 (11.5-14.5) % Plt Count 264 (130-400) K/uL MPV 9.9 (9.4-12.4) fL Immature Gran % (Auto) 1.4 % Neut % (Auto) 64.7 % Lymph % (Auto) 17.3 % [place] % (Auto) 12.9 % Eos % (Auto) 3.2 % Baso % (Auto) 0.5 % Neut # (Auto) 3.67 (1.4-6.5) K/uL Lymph # (Auto) 0.98 L (1.2-3.4) K/uL [place] # (Auto) 0.73 (0.24-0.82) K/uL Eos # (Auto) 0.18 (0-0.50) K/uL Baso # (Auto) 0.03 (0-0.2) K/uL Immature Gran # (Auto) 0.08 H (0.00-0.02) K/uL PT (9.0-12.0) Seconds INR (0.9-1.1) Sodium 138 139 (136-145) mmol/L Potassium 3.7 3.8 (3.5-5.1) mmol/L Chloride 104 105 (98-107) mmol/L Carbon Dioxide 27 30 (21-32) mmol/L Anion Gap 7 4 (3-11) BUN 12 10 (6-23) mg/dl Creatinine 0.79 1.01 (0.6-1.4) mg/dl Est Cr Clr Drug Dosing 153.3 119.9 ml/min Est GFR ( Amer) 129.3 106.6 ml/min Est GFR (Non-Af Amer) 111.5 92.0 ml/min BUN/Creatinine Ratio 15.2 9.9 L (10-20) Glucose 90 104 H (70-99(Fasting)) mg/dl Calcium 9.7 9.1 (8.5-10.1) mg/dl Phosphorus 3.8 3.8 (2.5-4.9) mg/dl Magnesium 2.0 2.2 (1.7-2.4) mg/dl Total Bilirubin 0.5 (0.2-1.0) mg/dl AST 27 (13-39) U/L ALT 26 (7-52) U/L Alkaline Phosphatase 63 (34-104) U/L Total Protein 6.5 (6.0-8.3) gm/dl Albumin 3.8 (3.4-5.0) gm/dl Globulin 2.7 (2.5-4.0) gm/dl Albumin/Globulin Ratio 1.4 (0.9-2) 07/10/22 07/10/22 Range/Units 09:15 09:15 WBC 4.02 L (4.8-10.8) K/ul RBC 4.14 L (4.63-6.08) M/uL Hgb 13.4 L (14.0-18.0) g/dl Hct 39.9 L (40.1-51.0) % MCV 96.4 (80.0-100.0) fL MCH 32.4 (25.0-34.0) pg MCHC 33.6 (32.0-36.0) g/dL RDW Std Deviation 48.5 H (36.4-46.3) fL RDW Coeff of Cammie 13.7 (11.5-14.5) % Plt Count 234 (130-400) K/uL MPV 9.7 (9.4-12.4) fL Immature Gran % (Auto) % Neut % (Auto) % Lymph % (Auto) % [place] % (Auto) % Eos % (Auto) % Baso % (Auto) % Neut # (Auto) (1.4-6.5) K/uL Lymph # (Auto) (1.2-3.4) K/uL [place] # (Auto) (0.24-0.82) K/uL Eos # (Auto) (0-0.50) K/uL Baso # (Auto) (0-0.2) K/uL Immature Gran # (Auto) (0.00-0.02) K/uL PT 11.2 (9.0-12.0) Seconds INR 1.1 (0.9-1.1) Sodium (136-145) mmol/L Potassium (3.5-5.1) mmol/L Chloride (98-107) mmol/L Carbon Dioxide (21-32) mmol/L Anion Gap (3-11) BUN (6-23) mg/dl Creatinine (0.6-1.4) mg/dl Est Cr Clr Drug Dosing ml/min Est GFR ( Amer) ml/min Est GFR (Non-Af Amer) ml/min BUN/Creatinine Ratio (10-20) Glucose (70-99(Fasting)) mg/dl Calcium (8.5-10.1) mg/dl Phosphorus (2.5-4.9) mg/dl Magnesium (1.7-2.4) mg/dl Total Bilirubin (0.2-1.0) mg/dl AST (13-39) U/L ALT (7-52) U/L Alkaline Phosphatase (34-104) U/L Total Protein (6.0-8.3) gm/dl Albumin (3.4-5.0) gm/dl Globulin (2.5-4.0) gm/dl Albumin/Globulin Ratio (0.9-2) Resident Activity Tracking Resident Involvement: Resident Care Provided Care Provided: Adult Hospital Medicine (1) Alcohol withdrawal Complication of substance-induced condition: with unspecified complication Qualified Code(s): F10.939 - Alcohol use, unspecified with withdrawal, un specified (2) Benzodiazepine withdrawal Complication of substance-induced condition: with unspecified complication Qualified Code(s): F13.939 - Sedative, hypnotic or anxiolytic use, unspecified with withdrawal, unspecified (3) Hypertension Hypertension type: unspecified Qualified Code(s): I10 - Essential (primary) hypertension
[2022-07-11 11:46] LABS: Quantiferon Mitogen-NIL >10.00 IU/mL; Quantiferon NIL 0.13 IU/mL; Quantiferon TB Gold Plus POSITIVE (NEGATIVE); Quantiferon TB1-NIL 1.31 IU/mL; Quantiferon TB2-NIL 1.38 IU/mL
[2022-07-11] MEDS ORDERED: LORazepam 2 MG/1 ML VIAL IV STA (12:20)
[2022-07-11] MEDS ORDERED: GABAPENTIN 600 MG TAB PO ONE (12:27)
[2022-07-11] MEDS ORDERED: GABAPENTIN 1200MG ALCOHOL WITHDRAWAL LOAD PO SCH (12:45)
[2022-07-11] MEDS ORDERED: LORazepam 2 MG/1 ML VIAL IV PRN (14:00)
[2022-07-11] MEDS: chlordiazePOXIDE HCl 25 MG CAP PO SCH ×2 (15:16→20:10)
--- NOTE | 2022-07-11 15:25 | Billing Data ---
Date of Service July 11, 2022 Coding Level of Care Code 16900 SUB INP/OBS CARE MIN
[2022-07-11] MEDS ORDERED: LORazepam 2 MG/1 ML VIAL ONE (16:29)
[2022-07-11] MEDS: LORazepam 2 MG/1 ML VIAL IV STA ×2 (16:40→16:41)
[2022-07-11] MEDS ORDERED: GABAPENTIN 600 MG TAB PO SCH (16:45)
[2022-07-11] MEDS: GABAPENTIN 600 MG TAB PO SCH ×2 (18:55→23:40)
[2022-07-11] MEDS: lisinopril 10 MG TAB PO SCH (20:10)
[2022-07-11] MEDS: FAMOTIDINE 20 MG TAB PO SCH (20:10)
[2022-07-11] MEDS: traZODone HCL 50 MG TAB PO SCH (20:13)
[2022-07-12 05:38] LABS: Calcium 9.9 mg/dl (8.5-10.1); Creatinine Clr Calc Pharmacy 126.3 ml/min; Est GFR (African American) 114.8 ml/min; Magnesium 2.2 mg/dl (1.7-2.4); Phosphorus 5.2 mg/dl (2.5-4.9); Potassium 3.8 mmol/L (3.5-5.1)
[2022-07-12 05:39] LABS: Basophils # (auto) 0.03 K/uL (0-0.2); Basophils % (auto) 0.5 %; Eosinophils % (auto) 3.5 %; Hematocrit (blood only) 46.1 % (40.1-51.0); Hemoglobin 15.8 g/dl (14.0-18.0); Immature Granulocytes # (auto) 0.01 K/uL (0.00-0.02); Immature Granulocytes % (auto) 0.2 %; Lymphocytes # (auto) 1.17 K/uL (1.2-3.4); Lymphocytes % (auto) 20.5 %; Mean Corpuscular Hemoglobin 32.4 pg (25.0-34.0); Mean Corpuscular Hgb Conc 34.3 g/dL (32.0-36.0); Mean Corpuscular Volume 94.5 fL (80.0-100.0); Mean Platelet Volume 10.1 fL (9.4-12.4); Monocytes # (auto) 0.88 K/uL (0.24-0.82); Monocytes % (auto) 15.4 %; Neutrophils # (auto) 3.42 K/uL (1.4-6.5); Neutrophils % (auto) 59.9 %; Platelet Count 244 K/uL (130-400); RDW Coefficient of Variation 13.5 % (11.5-14.5); RDW Standard Deviation 47.2 fL (36.4-46.3); Red Blood Count 4.88 M/uL (4.63-6.08); White Blood Count 5.71 K/ul (4.8-10.8)
[2022-07-12] MEDS: UMECLIDINIUM/VILANTEROL 62.5/25MCG 7 PUFFS/INHALER INH SCH (07:51)
[2022-07-12] MEDS: GABAPENTIN 600 MG TAB PO SCH ×3 (07:52→23:32)
[2022-07-12] MEDS: CYANOCOBALAMIN (B-12) 500 MCG TABLET PO SCH (07:52)
[2022-07-12] MEDS: NIACIN EXTENDED REL 500 MG TABCR PO SCH (07:53)
[2022-07-12] MEDS: THIAMINE HCL 100 MG TAB PO SCH (07:53)
[2022-07-12] MEDS: MULTIVITAMIN TAB PO SCH (07:53)
[2022-07-12] MEDS: PANTOprazole 40 MG TAB PO SCH (07:53)
[2022-07-12] MEDS: CHOLECALCIFEROL 5,000 UNITS 125 MCG TAB PO SCH (07:53)
[2022-07-12] MEDS: FOLIC ACID 1 MG TAB PO SCH (07:53)
[2022-07-12] MEDS: OMEGA-3 (PURIFIED FISH OIL) 1 GM CAP PO SCH (07:53)
[2022-07-12] MEDS: PARoxetine HCL 20 MG TAB PO SCH (07:53)
[2022-07-12] MEDS: chlordiazePOXIDE HCl 25 MG CAP PO SCH ×3 (07:56→20:44)
[2022-07-12] MEDS: LORazepam 2 MG/1 ML VIAL IV PRN ×4 (09:20→23:39)
[2022-07-12] MEDS ORDERED: lisinopril 20 MG TAB PO ONE (09:37)
[2022-07-12] MEDS ORDERED: chlordiazePOXIDE HCl 25 MG CAP PO ONE (10:33)
[2022-07-12] MEDS ORDERED: SUCRALFATE 1 GM TAB PO STA (10:35)
--- NOTE | 2022-07-12 10:45 | Hospitalist Progress Note ---
Date of Service July 12, 2022 Assessment & Plan (1) Alcohol withdrawal: Plan: Patient going through alcohol withdrawal.pt is agiated this am and wants multiple additional testing, mostly focused on his abdominal pain and reported crohns disease Required precedex, discontinued Scheduled Librium dose increased 07/12/22 and as needed Ativan gabapentin load, and TAPER 1 dose of oral phenobarb given Heart rate better, tremor and blood pressure are still present auditory and visual hallucinations are present (2) Benzodiazepine withdrawal with perceptual disturbance: Plan: Reportedly patient was surreptitiously taking a milligrams of Ativan daily prior to going to rehab still getting as needed Ativan throughout his hospital stay (3) PPD positive: Plan: questionable PPD positive, this was completed on Friday, over 72 hours, however, no induration noted, only eyrthema at this time. NO symptoms, chest x ray negative. Pulmonary removed precautions but ID control wants this to remain. (4) Scrotal pain: Plan: consult urology: U/S of scrotum completed. will require repeat in 3 months with outpatient followup. (5) Diffuse abdominal pain: Plan: Pt with abdominal pain mostly epigastric and LLQ, has liquid bowel stool will change ppi and H2 to iv one dose of carafate no anemia, vomiting or report of melena Pt is requesting a colonoscopy, and I did call his [facility] Gstroenterologist, left message, Darrel Person digestive disease specialist of [facility] CT scan presentation did not show inflammatory bowel changes or obstructive changes. Repeat abdominal x-ray performed on [facility] also confirms that the case Admission and Anticipated Discharge Date Admission Date: July 09, 2022 Subjective Patient having significant alcohol withdrawal symptoms. There may be a period of volitional anxiety associate with this as the patient is also asking for multiple testing procedures such as colonoscopies and endoscopies and wished for me to call his exterior designer in [place] which I did leave a message with my personal surfed cell phone and had no response. Patient is not any distress with anemia CT scan abdomen pelvis on presentation showed no sign of inflammatory bowel disease and abdominal x-ray from 07/12 shows no evidence of obstruction ileus or obstipation. Patient I believe has symptoms of proportion to his medical illness and there may be a part of secondary gain involved. Review of Systems 2 Review of Systems: Moderate to severe distress and agitation no headache, no visual changes no speech or swallowing issues no chest pain, pressure complains of sensation of palpitations no shortness of breath, cough or wheezes Planes of abdominal pain mostly epigastric in nature likely alcohol gastritis no dysuria, hematuria or frequency Mild right wrist swelling no back pain, CVA tenderness or radicular pain no bruising, bleeding or rashes no focal signs of weakness or numbness or altered sensation Significant anxiety and agitation Physical Exam Physical Exam: The patient appeared well nourished and normally developed. Vital signs as documented. Head exam is normocephalic atraumatic Neck is without JVD, thyromegaly, or carotid bruits. Lungs are clear to auscultation, no focal loss of breath sounds Cardiac exam, Rhythm is regular.. No murmurs, rubs or gallops. Abdominal exam reveals normal bowel sounds, soft tender in epigastrium and left lower quadrant Extremities are nonedematous and both pedal pulses are present Neurologic exam is alert and oriented, tremulous and anxious but no asterixis is seen Skin is without bruises or rashes Psychologically is with anxiety Results & Data Results & Data ([facility]) Vital Signs (Past 12 Hours) Vital Signs Temp Pulse Pulse Resp BP BP Pulse Ox 07/12/22 09:00 78 23 95 07/12/22 08:00 70 18 96 07/12/22 07:59 72 16 99 07/12/22 07:59 155/125 H 07/12/22 07:00 66 20 07/12/22 07:00 97.9 F 07/12/22 03:09 97.7 F 71 16 129/85 98 07/11/22 23:27 97.9 F 72 18 127/68 96 O2 Del Method 07/12/22 09:00 07/12/22 08:00 07/12/22 07:59 Room Air 07/12/22 07:59 07/12/22 07:00 07/12/22 07:00 07/12/22 03:09 Room Air 07/11/22 23:27 Room Air PG Care Time/CCT Total # of Minutes Spent Total Time Spent with Patient: Total time spent is greater than 50% in coordination of care (as documented) at patient's floor/unit and/or counseling patient: Coding Level of Care Code 78631 SUB INP/OBS CARE 3/50MIN Diagnoses Alcohol withdrawal F10.939 Benzodiazepine withdrawal with perceptual disturbance F13.932 PPD positive R76.11 Scrotal pain N50.82 Diffuse abdominal pain R10.84
[2022-07-12] MEDS: FAMOTIDINE 20 MG in SYRINGE 3 ML IV SCH ×2 (11:10→23:32)
--- NOTE | 2022-07-12 13:19 | XRay Report ---
ABDOMEN 2 VIEWS HISTORY: eval for obstipation COMPARISON: None. FINDINGS: There is no pneumoperitoneum or pneumatosis. The bowel gas pattern is unremarkable. No evid ence for bowel obstruction. No renal or ureteral calculi. Moderate well-formed stool within the colon .. IMPRESSION: No evidence for bowel obstruction. Moderate well-formed stool within the colon ACT 112: Negative or not required by law. Electronically signed by: Mckinley Weinstein M.D. 07/12/2022 1:17 PM
--- NOTE | 2022-07-12 14:37 | XRay Report ---
XR wrist RT 2V CLINICAL HISTORY: Right wrist pain with injury. COMPARISON STUDY: Right wrist 07/09/2022. FINDINGS: Mild soft tissue swelling within the right wrist. Right fifth metacarpal deformity, unchang ed. This is likely chronic. No acute fracture or dislocation within the right wrist. No radiopaque fo reign bodies. IMPRESSION: Mild soft tissue swelling within the right wrist. No acute fractures. ACT 112: Negative or not required by law. Electronically signed by: Mckinley Weinstein M.D. 07/12/2022 2:36 PM
[2022-07-12] MEDS ORDERED: PHENobarbitaL 30 MG TAB PO STA (14:55)
[2022-07-12] MEDS: traZODone HCL 50 MG TAB PO SCH (20:44)
[2022-07-12] MEDS: ENOXAPARIN INJ 40 MG/0.4 ML SYR SQ SCH (20:45)
[2022-07-12] MEDS: PANTOprazole 40 MG in SYRINGE 0 ML IV SCH (20:46)
[2022-07-12] MEDS: ACETAMINOPHEN 325 MG TAB PO PRN (23:39)
[2022-07-13] MEDS ORDERED: MELATONIN 3 MG TAB PO ONE (00:24)
[2022-07-13] MEDS ORDERED: GABAPENTIN 600 MG TAB PO SCH (04:45)
[2022-07-13 06:13] LABS: BUN Creatinine Ratio 18.8 (10-20); Calcium 9.3 mg/dl (8.5-10.1); Creatinine Clr Calc Pharmacy 125.7 ml/min; Est GFR (African American) 113.3 ml/min; Est GFR (Non-African American) 97.8 ml/min; Magnesium 2.2 mg/dl (1.7-2.4); Phosphorus 4.8 mg/dl (2.5-4.9)
[2022-07-13 06:58] LABS: Basophils # (auto) 0.06 K/uL (0-0.2); Eosinophils # (auto) 0.18 K/uL (0-0.50); Eosinophils % (auto) 3.1 %; Hematocrit (blood only) 44.7 % (40.1-51.0); Hemoglobin 15.2 g/dl (14.0-18.0); Immature Granulocytes # (auto) 0.03 K/uL (0.00-0.02); Immature Granulocytes % (auto) 0.5 %; Lymphocytes # (auto) 1.39 K/uL (1.2-3.4); Lymphocytes % (auto) 23.9 %; Mean Corpuscular Hemoglobin 31.7 pg (25.0-34.0); Mean Corpuscular Volume 93.1 fL (80.0-100.0); Mean Platelet Volume 9.4 fL (9.4-12.4); Monocytes % (auto) 13.7 %; Neutrophils # (auto) 3.36 K/uL (1.4-6.5); Neutrophils % (auto) 57.8 %; Platelet Count 280 K/uL (130-400); RDW Coefficient of Variation 13.4 % (11.5-14.5); RDW Standard Deviation 45.7 fL (36.4-46.3); White Blood Count 5.82 K/ul (4.8-10.8)
[2022-07-13] MEDS: LORazepam 2 MG/1 ML VIAL IV PRN ×4 (08:48→22:43)
[2022-07-13] MEDS: chlordiazePOXIDE HCl 25 MG CAP PO SCH ×5 (08:50→19:56)
[2022-07-13] MEDS: PANTOprazole 40 MG TAB PO SCH (10:21)
[2022-07-13] MEDS: MULTIVITAMIN TAB PO SCH (10:22)
[2022-07-13] MEDS: PARoxetine HCL 20 MG TAB PO SCH (10:22)
[2022-07-13] MEDS: lisinopril 20 MG TAB PO SCH (10:22)
[2022-07-13] MEDS: NIACIN EXTENDED REL 500 MG TABCR PO SCH (10:22)
[2022-07-13] MEDS: FOLIC ACID 1 MG TAB PO SCH (10:23)
[2022-07-13] MEDS: OMEGA-3 (PURIFIED FISH OIL) 1 GM CAP PO SCH (10:23)
[2022-07-13] MEDS: CYANOCOBALAMIN (B-12) 500 MCG TABLET PO SCH (10:23)
[2022-07-13] MEDS: PANTOprazole 40 MG in SYRINGE 0 ML IV SCH ×2 (10:23→19:57)
[2022-07-13] MEDS: THIAMINE HCL 100 MG TAB PO SCH (10:23)
[2022-07-13] MEDS: CHOLECALCIFEROL 5,000 UNITS 125 MCG TAB PO SCH (10:23)
[2022-07-13] MEDS: UMECLIDINIUM/VILANTEROL 62.5/25MCG 7 PUFFS/INHALER INH SCH (10:24)
[2022-07-13] MEDS: FAMOTIDINE 20 MG in SYRINGE 3 ML IV SCH ×2 (11:27→22:43)
[2022-07-13] MEDS: GABAPENTIN 600 MG TAB PO SCH (11:28)
[2022-07-13] MEDS ORDERED: PHENobarbitaL 30 MG TAB PO STA (15:29)
--- NOTE | 2022-07-13 15:41 | Hospitalist Progress Note ---
Date of Service July 13, 2022 Assessment & Plan (1) Alcohol withdrawal: Plan: Patient going through alcohol withdrawal.pt is agiated this am and wants multiple additional testing, mostly focused on his abdominal pain and reported crohns disease Required precedex, discontinued Scheduled Librium dose increased 07/12/22 and as needed Ativan gabapentin load, and TAPER 1 dose of oral phenobarb given with good resopnse but still needs significant ativan, will have a tapering low dose phenobarb at this time to try to reduce the dependence on prn ativan Heart rate better, and blood pressure is improved hallucinations are reducing (2) Benzodiazepine withdrawal with perceptual disturbance: Plan: Reportedly patient was surreptitiously taking a milligrams of Ativan daily prior to going to rehab still getting as needed Ativan throughout his hospital stay (3) PPD positive: Plan: questionable PPD positive, this was completed on Friday, over 72 hours, however, no induration noted, only eyrthema at this time. NO symptoms, chest x ray negative. Pulmonary removed precautions but ID control wants this to remain. (4) Scrotal pain: Plan: resolved consult urology: U/S of scrotum completed. will require repeat in 3 months with outpatient followup. (5) Diffuse abdominal pain: Plan: Pt with abdominal pain mostly epigastric and LLQ, has liquid bowel stool will change ppi and H2 to iv one dose of carafate no anemia, vomiting or report of melena Pt is requesting a colonoscopy, and I did call his [facility] Gstroenterologist, left message, Darrel Person digestive disease specialist of [facility] CT scan presentation did not show inflammatory bowel changes or obstructive changes. Repeat abdominal x-ray performed on [facility] also confirms that the case Admission and Anticipated Discharge Date Admission Date: July 09, 2022 Subjective Patient continues having significant alcohol withdrawal symptoms. 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 Patient is not any distress with anemia CT scan abdomen pelvis on presentation showed no sign of inflammatory bowel disease and abdominal x-ray from 07/12 shows no evidence of obstruction ileus or obstipation. Patient I believe has symptoms of proportion to his medical illness and there may be a part of secondary gain involved. Review of Systems Review of Systems: Moderate to severe distress and agitation no headache, no visual changes no speech or swallowing issues no chest pain, pressure complains of sensation of palpitations no shortness of breath, cough or wheezes Planes of abdominal pain mostly epigastric in nature likely alcohol gastritis no dysuria, hematuria or frequency Mild right wrist swelling no back pain, CVA tenderness or radicular pain no bruising, bleeding or rashes no focal signs of weakness or numbness or altered sensation Significant anxiety and agitation Physical Exam Physical Exam: The patient appeared well nourished and normally developed. Vital signs as documented. Head exam is normocephalic atraumatic Neck is without JVD, thyromegaly, or carotid bruits. Lungs are clear to auscultation, no focal loss of breath sounds Cardiac exam, Rhythm is regular.. No murmurs, rubs or gallops. Abdominal exam reveals normal bowel sounds, soft tender in epigastrium and left lower quadrant Extremities are nonedematous and both pedal pulses are present Neurologic exam is alert and oriented, tremulous and anxious but no asterixis is seen Skin is without bruises or rashes Psychologically is with anxiety Results & Data Results & Data ([facility]) Vital Signs (Past 12 Hours) Vital Signs Temp Pulse Pulse Resp BP Pulse Ox O2 Del Method 07/13/22 15:19 07/13/22 15:19 98.1 F 90 20 156/81 H 94 Room Air 07/13/22 11:12 97.7 F 90 18 138/87 96 Room Air 07/13/22 11:12 69 07/13/22 08:19 97.7 F 90 16 116/72 96 Room Air O2 Del Method 07/13/22 15:19 Room Air 07/13/22 15:19 07/13/22 11:12 07/13/22 11:12 07/13/22 08:19 PG Care Time/CCT Total # of Minutes Spent Total Time Spent with Patient: Total time spent is greater than 50% in coordination of care (as documented) at patient's floor/unit and/or counseling patient: Coding Level of Care Code 73742 SUB INP/OBS CARE 3/50MIN Diagnoses Alcohol withdrawal F10.939 Benzodiazepine withdrawal with perceptual disturbance F13.932 PPD positive R76.11 Scrotal pain N50.82 Diffuse abdominal pain R10.84
[2022-07-13] MEDS ORDERED: GABAPENTIN 100 MG CAP PO PRN (17:00)
[2022-07-13] MEDS ORDERED: HALOPERIDOL LACTATE 5 MG/ML 1 ML VIAL IV PRN (19:30)
[2022-07-13] MEDS ORDERED: OPTIRAY 350 100ml IV ONE (19:46)
[2022-07-13] MEDS: DIVALPROEX EXTENDED RELEASE 250 MG TABCR PO SCH (19:57)
[2022-07-13] MEDS: traZODone HCL 50 MG TAB PO SCH (19:58)
[2022-07-13] MEDS: ENOXAPARIN INJ 40 MG/0.4 ML SYR SQ SCH (19:59)
--- NOTE | 2022-07-13 20:05 | CT Scan Report ---
CT head/brain wo/w con HISTORY: 41 years-old Male Headache eval for mass bleed acute headache COMPARISON: None TECHNIQUE: Multiple axial CT images of the head were obtained both with and without the use of 83 mL Optiray 350. A dose lowering technique was used consistent with the principals of DORINA. FINDINGS: No acute intracranial hemorrhage, midline shift, abnormal extra-axial collection, hydrocephalus no ac [place] territorial infarct or intracranial mass. Mild involutional changes of the frontal lobes. No abno rmal enhancement. Cerebral venous sinuses and visualized arterial structures appear unremarkable. No acute calvarial fracture. Mastoid air cells are clear. Mild polypoid mucosal thickening of the rig ht sphenoid and left maxillary sinuses. Unremarkable soft tissues and orbits. IMPRESSION: 1. No acute intracranial abnormality. 2. No abnormal enhancement. ACT 112: Negative or not required by law. The above report was generated using voice recognition software. It may contain grammatical, syntax o r spelling errors. Electronically signed by: Marcel Hoyt M.D. 07/13/2022 8:04 PM
[2022-07-13] MEDS ORDERED: PHENobarbitaL 30 MG TAB PO SCH (21:00)
[2022-07-13] MEDS ORDERED: ONDANSETRON INJ 2 MG/ML 2 ML VIAL IV PRN (21:32)
[2022-07-13] MEDS ORDERED: KETOROLAC TROMETHAMINE 15 MG/ML VIAL IV ONE (22:17)
[2022-07-14] MEDS: GABAPENTIN 600 MG TAB PO SCH (00:13)
[2022-07-14] MEDS: LORazepam 2 MG/1 ML VIAL IV PRN ×2 (04:50→08:04)
--- NOTE | 2022-07-14 07:40 | Hospitalist Progress Note ---
Date of Service July 14, 2022 Assessment & Plan (1) Alcohol withdrawal: Plan: Patient going through alcohol withdrawal.pt is agiated this am and wants multiple additional testing, mostly focused on his abdominal pain and reported crohns disease Required precedex, discontinued Scheduled Librium dose increased 07/12/22 and as needed Ativan gabapentin load, and TAPER 1 dose of oral phenobarb given with good resopnse but still needs significant ativan, will have a tapering low dose phenobarb at this time to try to reduce the dependence on prn ativan Heart rate better, and blood pressure is improved hallucinations are reducing Pt is continuing to use expletives, wants to be transferred to a teaching hospital, as he feels we are not adequeately treating him, I explained to him that we are treating him with multiple medications, to help the physical withdrawal and he stated he wants to leave against medical advice. (2) Benzodiazepine withdrawal with perceptual disturbance: Plan: Reportedly patient was surreptitiously taking a milligrams of Ativan daily prior to going to rehab still getting as needed Ativan throughout his hospital stay after his fall , I had asked our security to take his personal belongings as for fear he may have been taking things in his personal affects, afterward he demanded them back. he said he would call police to come as we had stolen his clothing. I informed him that we had taken them for his safety as he is altered on many medications and wanted to have a safe environment. 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 NO symptoms, chest x ray negative. Pulmonary removed precautions but ID control wants this to remain. (4) Scrotal pain: Plan: resolved consult urology: U/S of scrotum completed. will require repeat in 3 months with outpatient followup. (5) Diffuse abdominal pain: Plan: Pt with abdominal pain mostly epigastric and LLQ, has liquid bowel stool will change ppi and H2 to iv one dose of carafate no anemia, vomiting or report of melena Pt is requesting a colonoscopy, and I did call his [facility] Gstroenterologist, left message, Darrel Person digestive disease specialist of [facility] CT scan presentation did not show inflammatory bowel changes or obstructive changes. Repeat abdominal x-ray performed on [facility] also confirms that the case Admission and Anticipated Discharge Date Admission Date: July 09, 2022 Subjective two [facility] visits this date, first visit pt was calm and shaking, he voiced a desire to begin to taper his ativan, we discussed that to try to keep him safe from withdrawal symptoms will have on gabapentin and depakote, continuing the librium but tapering and reducing the frequency of the ativan later in the after noon approx 2 rena i was called to the patients room as he had fallen in his bathroom he stated he had neck pain and left arm weakness and shoulder pain, I personally placed a Rigid C collar while laying on his stomach. we helped moving him to litter and ordered a C spine Ct scan. He later refused Ct scan of neck. he refused because he did not want to have the radiation, did have plain x rays. after x rays he was siting up in bed. Review of Systems Review of Systems: Moderate to severe distress and agitation no headache, no visual changes no speech or swallowing issues no chest pain, pressure complains of sensation of palpitations no shortness of breath, cough or wheezes Planes of abdominal pain mostly epigastric in nature likely alcohol gastritis no dysuria, hematuria or frequency Mild right wrist swelling no back pain, CVA tenderness or radicular pain no bruising, bleeding or rashes no focal signs of weakness or numbness or altered sensation Significant anxiety and agitation pt was examined and could spontaneously move all extermities, he was able to speak and converse and did not have any immediate injuries Physical Exam Physical Exam: The patient appeared well nourished and normally developed. Vital signs as documented. Head exam is normocephalic atraumatic Neck is without JVD, thyromegaly, or carotid bruits. Lungs are clear to auscultation, no focal loss of breath sounds Cardiac exam, Rhythm is regular.. No murmurs, rubs or gallops. Abdominal exam reveals normal bowel sounds, soft tender in epigastrium and left lower quadrant Extremities are nonedematous and both pedal pulses are present Neurologic exam is alert and oriented, tremulous and anxious but no asterixis is seen Skin is without bruises or rashes Psychologically is with anxiety Results & Data Results & Data ([facility]) Vital Signs (Past 12 Hours) Vital Signs Temp Pulse Pulse Resp BP BP Pulse Ox 07/14/22 04:45 97.3 F L 63 20 110/70 95 07/14/22 03:17 97.3 F L 68 16 96/59 L 94 07/14/22 01:57 97.3 F L 68 12 105/63 97 07/14/22 01:05 85 07/13/22 22:40 97.7 F 88 20 134/77 96 07/13/22 20:51 97.7 F 77 16 114/74 95 O2 Del Method 07/14/22 04:45 Room Air 07/14/22 03:17 Room Air 07/14/22 01:57 Room Air 07/14/22 01:05 07/13/22 22:40 Room Air 07/13/22 20:51 Room Air PG Care Time/CCT Total # of Minutes Spent Total Time Spent with Patient: Total time spent is greater than 50% in coordination of care (as documented) at patient's floor/unit and/or counseling patient: Coding Diagnoses Alcohol withdrawal F10.939 Benzodiazepine withdrawal with perceptual disturbance F13.932 PPD positive R76.11 Scrotal pain N50.82 Diffuse abdominal pain R10.84
[2022-07-14] MEDS: PANTOprazole 40 MG in SYRINGE 0 ML IV SCH (08:05)
[2022-07-14] MEDS: CHOLECALCIFEROL 5,000 UNITS 125 MCG TAB PO SCH (08:06)
[2022-07-14] MEDS: OMEGA-3 (PURIFIED FISH OIL) 1 GM CAP PO SCH (08:07)
[2022-07-14] MEDS: DIVALPROEX EXTENDED RELEASE 250 MG TABCR PO SCH (08:07)
[2022-07-14] MEDS: NIACIN EXTENDED REL 500 MG TABCR PO SCH (08:07)
[2022-07-14] MEDS: FOLIC ACID 1 MG TAB PO SCH (08:07)
[2022-07-14] MEDS: CYANOCOBALAMIN (B-12) 500 MCG TABLET PO SCH (08:07)
[2022-07-14] MEDS: lisinopril 20 MG TAB PO SCH (08:07)
[2022-07-14] MEDS: MULTIVITAMIN TAB PO SCH (08:07)
[2022-07-14] MEDS: THIAMINE HCL 100 MG TAB PO SCH (08:07)
[2022-07-14] MEDS: UMECLIDINIUM/VILANTEROL 62.5/25MCG 7 PUFFS/INHALER INH SCH (08:08)
[2022-07-14] MEDS: PARoxetine HCL 20 MG TAB PO SCH (08:08)
[2022-07-14] MEDS: chlordiazePOXIDE HCl 25 MG CAP PO SCH (08:15)
[2022-07-14] MEDS ORDERED: FAMOTIDINE 20 MG TAB PO SCH (09:00)
[2022-07-14] MEDS: PANTOprazole 40 MG TAB PO SCH (10:06)
[2022-07-14] MEDS ORDERED: DIVALPROEX EXTENDED RELEASE 250 MG TABCR PO ONE (10:57)
[2022-07-14] MEDS ORDERED: LORazepam 2 MG/1 ML VIAL IV PRN ×2 (10:58→14:27)
[2022-07-14] MEDS ORDERED: OLANZapine 5 MG TABLET PO SCH ×2 (11:00→21:00)
[2022-07-14] MEDS ORDERED: SUCRALFATE 1 GM/10 ML UDC PO SCH (13:00)
[2022-07-14] MEDS ORDERED: chlorproMAZINE HCL 25 MG/ML AMP IM ONE (14:29)
--- NOTE | 2022-07-14 14:44 | XRay Report ---
XR shoulder LT min 2V routine, XR shoulder RT min 2V routine CLINICAL HISTORY: fall and pain. Bilateral shoulder pain. COMPARISON STUDY: None. FINDINGS: No fracture or dislocation within the right or left shoulder. The bilateral clavicles are i ntact. Soft tissues are unremarkable. IMPRESSION: No fractures within the right or left shoulder. ACT 112: Negative or not required by law. Electronically signed by: Mckinley Weinstein M.D. 07/14/2022 2:43 PM
--- NOTE | 2022-07-14 15:13 | Discharge Summary ---
Date of Service July 14, 2022 Admission HPI Per Admitting Provider This is a pleasant 41 yo malewho was at [facility] for about 5 days. He was being treated for alcohol and benzo withdrawal. The patient reports he normally takes about 6 mg of ativan daily. He was being treated with valium but yesterday was having hallucinations, shakes and being agitated. He has sweats. The patient also reports having a positive PPD which was done on Friday. He also reports having a history of an ileus. Is complaining of right wrist pain. The patient denies fever, and no diarrhea. He thinks most of his symptoms today are from benzodiazepine withdrawal, he is asking for help. Principal Diagnosis benzodiazepine with drawl, alcohol withdrawal antisocial behavior Discharge Exam Pt was awake and calm despite having his meds today he requested a transfer and I offer to call later he requested to leave AMA Discharge Data Allergies Allergy/AdvReac Type Severity Reaction Status Date / Time Penicillins Allergy Unknown Unknown Verified 07/09/22 16:42 Consultations 07/09/22 16:01 ED Decision to Admit Stat 07/09/22 17:52 Consult Urology Routine 07/09/22 20:48 Consult Photographic Press Screwmaker Stat 07/13/22 16:13 Consult Behavioral Health Liaison Routine 07/14/22 08:02 Consult Patient Services Routine Ordered Studies 07/09/22 13:31 CT abd pelvis IV con only Stat 07/09/22 16:00 US venous doppler UE RT Urgent 07/09/22 19:55 US scrotum/testicle Urgent 07/13/22 18:30 CT head/brain wo/w con Routine Hospital Course (1) Alcohol withdrawal: Patient going through alcohol withdrawal.pt is agiated this am and wants multiple additional testing, mostly focused on his abdominal pain and reported crohns disease Required precedex on presentation, discontinued Scheduled Librium dose increased 07/12/22 and as needed Ativan gabapentin load, and TAPER 1 dose of oral phenobarb given with good response but still needs significant ativan, placed formal request for psych liaison to evaluate. [facility] psychiatrist Dr. Jarrett who recommended Depakote and lieu of the phenobarbital. Intramuscular or intravenous Haldol. Subsequently phenobarbital telemetry was discontinued in favor of the Depakote. Heart rate better, and blood pressure is improved hallucinations were not a complaint on 07/14/2022 In the afternoon 07/14/2022 pt is continuing to use expletives, wants to be transferred to a teaching hospital, as he feels we are not adequately treating him, I explained to him that we are treating him with multiple medications, to help the physical withdrawal and he stated he wants to leave against medical advice. Patient had a headache and requested an MRI scan. Patient requested sedation for MRI scan. Because of the of degree of sedating medications he was on IV felt hesitant to perform MRI scan due to possible respiratory depression. Patient was on approximately 9 mg of Ativan equivalent during the day plus gabapentin plus boluses of Ativan that equal to 8 mg. Subsequently performed a CT scan of the head which the patient was not satisfied with. (2) Benzodiazepine withdrawal with perceptual disturbance: Reportedly patient was surreptitiously taking a milligrams of Ativan daily prior to going to rehab still getting as needed Ativan throughout his hospital stay after his fall , I had asked our security to take his personal belongings as for fear he may have been taking things in his personal affects, afterward he demanded them back. he said he would call police to come as we had stolen his clothing. I informed him that we had taken them for his safety as he is altered on many medications and wanted to have a safe environment. I had him sign out AMA and Rx to [facility] for Gabapentin and LIbrium He will be escorted out of our facility by our on site security (3) PPD positive: questionable PPD positive, this was completed on Friday, over 72 hours, however, no induration noted, only eyrthema at this time. NO symptoms, chest x ray negative. Pulmonary removed precautions but ID control wants this to remain. (4) Scrotal pain: resolved consult urology: U/S of scrotum completed. will require repeat in 3 months with outpatient followup. (5) Diffuse abdominal pain: Pt presented with abdominal pain mostly epigastric and LLQ, has liquid bowel stool claims is a diagnosis of Crohn's disease Patient was continued on PPI and H2 blockers at time of discharge no anemia, vomiting or report of melena Pt is requesting a colonoscopy, and I did call his [facility] Gstroenterologist, left message to return call no cause of her interned at this point, Darrel Person digestive disease specialist of [facility] CT scan presentation did not show inflammatory bowel changes or obstructive changes. Repeat abdominal x-ray performed 07/12 shows no evidence of abnormalities Plan if this pt represents to our facility I would recommend we create a contract for care on intake to set some boundaries to protect the patient and the facility Total Time Total Time Spent Total Time Spent (In Minutes): much greater than 30 minutes were required to create this discharge summary Discharge Plan Discharge Items Patient Disposition: Against Medical Advice Reason For Visit: BENZO WITHDRAWAL Condition on Discharge: Fair Activity: Resume your previous activity Non-emergency contact: Primary Care Provider Follow-up/Referrals: PCP,NO [Primary Care Provider] - Pending Studies at Discharge: No Stand-Alone Forms: [facility] [employer], Smoking Cessation Medications and DC Order Prescriptions: New chlordiazepoxide HCl 25 mg Capsule 25 mg PO QID Qty: 10 0RF Continued trazodone 50 mg Tablet 75 mg PO HS thiamine HCl (vitamin B1) 100 mg Tablet 100 mg PO DAILY Rx Instructions: X 15 DAYS omeprazole 40 mg Capsule,Delayed Release(Dr/Ec) 40 mg PO DAILY famotidine 20 mg Tablet 20 mg PO HS lisinopril 10 mg Tablet 10 mg PO DAILY paroxetine HCl [Paxil] 40 mg Tablet 40 mg PO DAILY loratadine [Claritin] 10 mg Tablet 10 mg PO DAILY PRN (Reason: ALLERGIES) acetaminophen [Tylenol] 325 mg Capsule 650 mg PO QID PRN (Reason: Pain) Anoro Ellipta 62.5-25 mcg/actuation Blister With Device 1 inh INHALATION DAILY Naloxone Nasal [place] 4mg 1 spray NA DIRECTED PRN (Reason: Odor) gabapentin 300 mg Capsule 300 mg PO TID Qty: 10 0RF Discontinued diazepam [Valium] 5 mg Tablet 2.5 mg PO .[id number] Rx Instructions: GIVE ON 07/11/22 & 06/11/23 diazepam [Valium] 5 mg Tablet 2.5 mg PO .[id number] Rx Instructions: GIVE ON 07/13/22 & 07/14/22, THEN REDUCE TO 2.5MG BID FOR 2 DAYS, THEN REDUCE TO 2.5MG DAILY FOR 2 DAYS. diazepam [Valium] 5 mg Tablet 5 mg PO .[id number] Rx Instructions: GIVE ON 07/09/22 & 07/10/22 multivitamin Tablet 1 tab PO DAILY clonidine HCl 0.1 mg Tablet 0.1 mg PO TID PRN (Reason: .LOS ANXIETY/RESTLESSNESS) Rx Instructions: PRN ALSO FOR HR>/70 & bp >100/70 omega-3 fatty acids [Fish Oil Concentrate] 1,000 mg Capsule 1,000 mg PO DAILY loperamide [Imodium] 2 mg Capsule 4 mg PO BID PRN (Reason: Diarrhea) Rx Instructions: administer after each loose stool until symptoms controlled; do not exceed 8 mg per 24 hrs cyanocobalamin (vitamin B-12) [Vitamin B-12] 1,000 mcg Tablet 1,000 mcg PO DAILY hydroxyzine pamoate [Vistaril] 50 mg Capsule 50 mg PO TID PRN (Reason: .los) garlic 1,000 mg Capsule 1,000 mg PO DAILY diphenhydramine HCl [Benadryl] 25 mg Capsule 25 - 50 mg PO Q6 PRN (Reason: ..) buspirone [BuSpar] 10 mg Tablet 10 mg PO TID folic acid 1 mg Tablet 1 mg PO DAILY ibuprofen 600 mg Tablet 600 mg PO QID PRN (Reason: Pain) diazepam [Valium] 5 mg Tablet 5 mg PO DIRECTED PRN (Reason: .SEE INSTRUCTIONS) Rx Instructions: PRN CIWA>/=8. IF 3 DOSES IN 24 HOURS, NOTIFY DR. DAMIAN FOR SEDATION saw palmetto 450 mg Capsule 450 mg PO HS Rx Instructions: give with food (meal/snack) melatonin 5 mg Tablet 5 - 10 mg PO HS PRN (Reason: Sleep) cholecalciferol (vitamin D3) [Vitamin D3] 125 mcg (5,000 unit) Tablet 125 mcg PO DAILY niacin 500 mg Tablet Extended Release 500 mg PO QAM Zinc Oxide/ Dimethicone 1 applic topical DIRECTED PRN (Reason: Hemorrhoids) Discharge Orders: Left Against Medical Advice (Routine); Ordered 07/14/22 Ordered By: Segundo Wise Admission Data Admit Date/Time: 07/09/22 16:35 Attending Provider: Segundo Wise Admit Provider: Sunil Lynn Primary Care Provider: PCP,NO Other Providers: Sunil Lynn ; Jose Tristan ; Harshal Flores ; Al Nicole ; Maura Holder ; Daren Lo ; Nathaly Robles ; Alma Sullivan ; Zeus Harkins ; Jenny Sanders ; Connie Caro ; Segundo Willingham ; Dewayne Estrada ; Susan Stallings Coding Level of Care Code HOSP INP/OBS DISCH >30 MIN Diagnoses Alcohol withdrawal F10.939 Benzodiazepine withdrawal with perceptual disturbance F13.932 PPD positive R76.11 Scrotal pain N50.82 Diffuse abdominal pain R10.84
[2022-07-14] MEDS ORDERED: chlordiazePOXIDE HCl 25 MG CAP PO SCH (17:00)
[2022-07-14] MEDS ORDERED: DIVALPROEX EXTENDED RELEASE 500 MG TAB PO SCH (21:00)
[2022-07-14] MEDS ORDERED: OLANZapine 10 MG TAB PO SCH (21:00)
[2022-07-14] MEDS ORDERED: PANTOprazole 40 MG TAB PO SCH (21:00)
[2022-07-14] MEDS ORDERED: GABAPENTIN 600 MG TAB PO SCH (21:00)
[2022-07-15] MEDS ORDERED: GABAPENTIN 600 MG TAB PO SCH (00:30)
== END 2022-07-14 15:40 | disposition left against medical advice (07) | DRG 894 ==
LOC: ED 13:05 → SUATTDRO 16:35 → EDINP 16:35 → 1E 18:09 → 2S 07-12 11:01
DX: F13.239 Sedative, hypnotic or anxiolytic dependence with withdrawal, unspecified; R76.11 Nonspecific reaction to tuberculin skin test without active tuberculosis; N50.89 Other specified disorders of the male genital organs; G47.00 Insomnia, unspecified; F43.10 Post-traumatic stress disorder, unspecified; Z88.0 Allergy status to penicillin; R00.1 Bradycardia, unspecified; F10.231 Alcohol dependence with withdrawal delirium; F60.2 Antisocial personality disorder; R00.0 Tachycardia, unspecified; R44.3 Hallucinations, unspecified; I10 Essential (primary) hypertension